=== PATIENT | male | born 1965 | race Caucasian/White ===

== ENCOUNTER 2018-02-23 18:09 | Observation (INO) | payer OTHER ==
[~2018-02-23] VITALS: Ht 368.3 cm; Wt 121.7 kg
--- NOTE | ~2018-02-23 | OP ---
PATIENT NAME: ARVIN RONDON MEDICAL RECORD: [id number] :63 LOCATION:[facility] ADMISSION DATE:02/23/18 SURGEON: KATHARINA GONZALEZ MD DATE OF OPERATION: 02/24/2018 PROCEDURES: 1. PTCA and stent of LAD. 2. PTCA and stent of left circumflex. 3. Intravascular ultrasound. 4. Left heart catheterization. 5. Selective coronary angiography. 6. Left ventriculogram. INDICATION: Unstable angina and coronary artery disease. PROCEDURE IN DETAIL: After informed consent was obtained and after a detailed explanation of the risks, benefits as well as alternative therapies, the patient elected to proceed with angiogram and angioplasty. The right femoral area was prepped and draped in normal sterile fashion. Right femoral artery was cannulated via modified Seldinger technique with placement of 7-Kazakh sheath. All catheters exchanged through this sheath. FINDINGS: Left ventriculogram was performed in a standard 30-degree SAENZ view, reveals good cardiac wall motion throughout all segments. Overall ejection fraction estimated at 50%. SELECTIVE CORONARY ANGIOGRAPHY: 1. Left main is with no significant angiographic disease. 2. Left anterior descending has greater than 80% stenosis in the mid vessel confirmed by intravascular ultrasound. 3. Left circumflex has a 90% stenosis in the mid vessel. 4. The right coronary artery is subtotally occluded in multiple areas, diffusely diseased distally. Due to the diffuse disease, this is not a vessel that will be considered for bypass surgery. PTCA AND STENT OF LAD AND CIRCUMFLEX: The LAD was addressed with a 2.75 x 26-mm Integrity and the circumflex with a 3.0 x 22 and 2.5 x 15, both Integrity stents. Result was 0% residual stenosis. OVERALL IMPRESSION: Successful PTCA and stent of the LAD and circumflex, both going from 80% to 90% initial stenosis to 0% residual. PLAN: Plan for medical management of the RCA. TRANSINT:[id number] Voice Confirmation ID: [id number] DOCUMENT ID: [id number] KATHARINA GONZALEZ MD CC: [id number] DICTATION DATE: 02/24/18 1117 [employer]: 02/24/18 1151 ADM IN [place] [id number] [place] [address]
--- NOTE | ~2018-02-23 | DS ---
PATIENT:ARVIN ANGELES :63 MEDICAL RECORD: [id number] DISCHARGE SUMMARY ADMISSION DATE: 02/23/18 DISCHARGE DATE: 02/24/18 DATE OF DISCHARGE: 02/24/2018. DIAGNOSES: 1. Unstable angina. 2. Coronary artery disease. 3. Percutaneous transluminal coronary angioplasty stent left anterior descending and circumflex this admission. HOSPITAL COURSE: Mr. Angeles presents with unstable anginal symptomatology, found to have 3-vessel coronary artery disease. The RCA was diffusely diseased, unbypassable to LAD and circumflex, underwent PTCA stent, was discharged home with the addition of aspirin and Plavix to his medical regimen. Will follow up with [facility] in 1 month. TRANSINT:[id number] Voice Confirmation ID: [id number] DOCUMENT ID: [id number] KATHARINA GONZALEZ MD CC: [id number] DICTATION DATE: 02/24/18 1114 PRACTICE COORDINATOR: 02/25/18 0020 DIS IN 02/24/18 [place] [id number] [place] [id number]
--- NOTE | ~2018-02-23 | HEMODYNAMI ---
PATIENT:AVRIN RONDON MEDICAL RECORD: [id number] : 63 [facility] ADMISSION DATE: 02/23/18 Generatedon:02/24/201815:47 Patient name: ARVIN RONDON Patient #: [id number] SSN: : 1965 Date of study: 02/24/2018 Page: Of Hemodynamic Procedure Report Patient Data Patient Demographics Procedure consent was obtained First Name: ARVIN Gender: Male Last Name: ALCON : 1965 Middle Initial: ALVINO Age: 52 year(s) Patient #: [id number] Race: Unknown Additional ID: [id number] Contact details Address: [place] [address] State: [place] City: [place] Zip code: [address] Past Medical History Allergies: No known allergies Admission Admission Data Admission Date: 02/23/2018 Admission Time: 19:03 Admit Source: Transfer acute care facility Room #: [facility] Procedure Procedure Types Cath Procedure Diagnostic Procedure LHC [facility] w/Coronaries FFR/IVUS Intra-Coronary IVUS Initial Sedation Charges Moderate Sedation up to 30 minutes PCI Procedure Coronary Stent Coronary Stent Initial x2 Coronary Stent Additional Procedure Description Procedure Date Procedure Date: 02/24/2018 Procedure Start Time: 10:22 Procedure End Time: 11:09 Procedure Staff Name Function Viet Bridges RT Manufacturing Plant Manager Gin Smith RT Monitor Medhat Gentile RN Manufacturing Plant Manager Abraham Dumont MD Performing Physician Jericho Crawford RT Scrub Marika Casey RN Nurse Procedure Data Cath Procedure Fluoroscopy Diagnostic fluoroscopy Total fluoroscopy Time: time: 17.2 min 17.2 min Diagnostic fluoroscopy Total fluoroscopy dose: dose: 2753 mGy 2753 mGy Contrast Material Contrast Material Type Amount (ml) Isovue 300 347 Entry Location Entry Primary Successful Side Size Upsize Upsize Entry Closure Succes sful Closure Location (Fr) 1 (Fr) 2 (Fr) Remarks Device Remarks Radial Right 6 Fr artery Short Femoral Right 7 Fr Exoseal artery Short Estimated blood loss: 5 ml Diagnostic catheters Device Type Used For End Catheter Placement DIAGNOSTIC Bainbridge 110cm 5 Multi-vessel Fr catheter ([id number]) Angiography Procedure Complications No complications Procedure Medications Medication Administration Route Dosage 0.9% NaCl I.V. 100 ml/hr Oxygen etCO2 Nasal cannula 2 l/min Lidocaine 2% added to field 20 Heparin Flush Bag added to field 2 bags (1000units/500ml NS) Versed I.V. 2 mg Fentanyl I.V. 50 mcg Radial Cocktail added to field 1 syringe (Verapomil 2mg/Nitro 400mcg/Heparin 1500units) Heparin Bolus I.V. 4000 units Versed I.V. 2 mg Fentanyl I.V. 50 mcg Plavix P.O. 75 mg Versed I.V. 1 mg Fentanyl I.V. 25 mcg Hemodynamics Rest Heart Rate: 73 (bpm) Pressure Samples Time Site Value (mmHg) Purpose Heart Use Rate(bpm) 10:25 LV 64/6,6 Snapshot 74 Snapshots Pre Cath Intra NCS Post Cath Vital Signs Time Heart Resp SPO2 etCO2 NIBP (mmHg) Rhythm Pain Sedation Rate (ipm) (%) (mmHg) Status Level (bpm) 10:12:17 70 21 99 35 149/91(118) NSR 0 (11) 10(A) , No pain 10:16:32 67 12 100 29.5 127/81(108) NSR 0 (11) 10(A) , No pain 10:20:46 63 18 98 31.8 122/77(92) NSR 0 (11) 9(A) , No pain 10:24:57 74 15 96 40 111/74(86) NSR 0 (11) 9(A) , No pain 10:29:06 67 13 95 12.1 112/74(92) NSR 0 (11) 9(A) , No pain 10:33:20 65 13 96 17.4 112/70(94) NSR 0 (11) 10(A) , No pain 10:37:30 66 14 96 29.5 122/73(85) NSR 0 (11) 9(A) , No pain 10:41:42 64 13 96 18.1 113/73(83) NSR 0 (11) 9(A) , No pain 10:45:56 63 12 96 13.6 112/69(91) NSR 0 (11) 9(A) , No pain 10:50:10 60 13 96 34.8 116/69(85) NSR 0 (11) 10(A) , No pain 10:54:22 60 13 97 33.3 106/62(79) NSR 0 (11) 9(A) , No pain 10:58:36 57 11 96 25 100/58(79) NSR 0 (11) 9(A) , No pain 11:02:46 58 12 97 36.3 104/63(77) NSR 0 (11) 9(A) , No pain 11:06:56 60 10 98 34.8 115/71(98) NSR 0 (11) 10(A) , No pain Medications Time Medication Route Dose Verified Delivered Reason Not es Effectiveness by by 10:08:24 0.9% NaCl I.V. 100 Abraham Marika used for ml/hr Tim Casey italian tutor 10:08:32 Oxygen etCO2 2 l/min Abraham Mariak used for Nasal Tim Casey procedure cannula RN 10:08:37 Lidocaine 2% added 20ml Abraham Abraham for local to vial Tim Dumont MD anesthetic field 10:08:41 Heparin Flush added 2 bags Abrahambella Rosario used for Bag to Tim Dumont MD procedure (1000units/500ml field NS) 10:19:42 Versed I.V. 2 mg Abraham Marika for sedation Tim Casey RN 10:19:56 Fentanyl I.V. 50 mcg Abraham Marika for sedation Tim Casey RN 10:22:17 Radial Cocktail added 1 Abraham Abraham used for (Verapomil to syringe Tim Dumont MD procedure 2mg/Nitro field 400mcg/Hepari 10:33:17 Heparin Bolus I.V. 4000 Abraham Marika for dianelys ified units Tmi Casey anticoagulation with Dr. MAR Dumont 10:33:36 Versed I.V. 2 mg Abraham Marika for sedation Tim Casey RN 10:33:42 Fentanyl I.V. 50 mcg Abraham Marika for sedation Tim Casey RN 10:37:20 Plavix P.O. 75 mg Abraham Marika for Tim Casey antiplatelet RN therapy 10:52:14 Versed I.V. 1 mg Abraham Hairston for sedation Tim Casey RN 10:52:18 Fentanyl I.V. 25 mcg Abraham Hairston for sedation Tim Casey RN Procedure Log Time Note 9:52:40 Medhat Gentile RN sent for patient. Start room use. 10:07:07 Admit Source: Transfer acute care facility 10:07:37 Diagnostic Cath status Elective 10:07:41 Time tracking: Regular hours (M-F 7:00 - 5:00) 10:07:46 Plan of Care:Hemodynamics will remain stable., Cardiac rhythm will remain stable., Comfort level will be maintained., Respiratory function will remain adequate., Patient/ family verbilizes understanding of procedure., Procedure tolerated without complication., Recovers from procedure without complications.. 10:07:54 Patient received from PCU to CCL 1 Alert and oriented. Tansferred to table in Supine position. 10:07:55 Correct patient and procedure confirmed by team. 10:07:55 Warm blankets applied, and anahy hugger turned on for patient comfort. 10:07:57 Signed procedure consent form obtained from patient. 10:07:58 ECG and BP/O2 sat monitors applied to patient. 10:08:24 0.9% NaCl 100 ml/hr I.V. was administered by Marika Casey RN; used for procedure; 10:08:32 Oxygen 2 l/min etCO2 Nasal cannula was administered by Marika Casey RN; used for procedure; 10:08:37 Lidocaine 2% 20ml vial added to field was administered by Abraham Dumont MD; for local anesthetic; 10:08:41 Heparin Flush Bag (1000units/500ml NS) 2 bags added to field was administered by Abrahma Dumont MD; used for procedure; 10:11:04 Vital chart was started 10:11:08 Baseline sample Acquired. 10:11:20 Rhythm: sinus rhythm 10:12:21 H&P Date Dictated: 02/23/2018 ER History on chart.. 10:12:27 Pre-procedure instructions explained to patient. 10:12:28 Pre-op teaching completed and patient verbalized understanding. 10:12:31 Family unavailable. 10:12:35 Patient NPO since Midnight. 10:12:53 Patient allergic to No known allergies 10:13:00 Is the patient allergic to Iodine/contrast media? No. 10:13:07 Is patient on blood thinner?Yes 10:13:13 ACC The patient was administered the following blood thiners within the last 24 hours: ACCPlavix 10:13:18 Patient diabetic? No. 10:13:29 ----Pre-sedation anethsthesia assessment.---- 10:13:34 Previous problem with sedation/anesthesia? No ? 10:13:37 Snore? Yes 10:13:40 Sleep apnea? No 10:13:42 Deviated septum? No 10:13:44 Opens mouth fully? Yes 10:13:46 Sticks out tongue? Yes 10:13:50 Airway obstruction? No ? 10:13:55 Dentures? No ? 10:14:11 Patient pain scale 0/10 ?. 10:14:21 Modified Jose's test Radial > 7 seconds. 10:14:43 IV patent on arrival in right forearm with 0.9% NaCl at 100ml/hr. 10:18:29 IV patent on arrival in right hand with 0.9% NaCl at KVO. 10:18:33 Lab results completed and on chart. 10:18:38 Right Radial & Right Groin area was prepped with chlora-prep and draped in sterile fashion 10:18:39 Sharps counted by scrub and verified by R.N. 10:18:39 Alarms reviewed by R. N. 10:18:42 Physician arrived 10:18:43 --------ALL STOP TIME OUT------ 10:18:45 Final Timeout: patient, procedure, and site verified with staff and physician. All members of the team are in agreement. 10:18:46 Right Radial & Right Groin site verified by team. 10:18:50 Physical assessment completed. ASA score P 2 - A patient with mild systemic disease as per Abraham Dumont MD. 10:18:54 Sedation plan: IV Moderate Sedation Medication:Versed, Fentanyl 10:19:42 Versed 2 mg I.V. was administered by Marika Casey RN; for sedation; 10:19:56 Fentanyl 50 mcg I.V. was administered by Marika Casey RN; for sedation; 10:20:41 Use device set Radial Dx or PCI 10:20:43 Medline Cath Pack ([id number]) opened to sterile field. 10:20:43 ACIST Syringe (60998) opened to sterile field. 10:20:44 ACIST Hand Control (27815) opened to sterile field. 10:20:44 DIAGNOSTIC WIRE .035 260cm J wire (137356) opened to sterile field. 10:20:44 Bag Decanter (2001S) opened to sterile field. 10:20:45 Tegaderm 4 x 4 (1626W) opened to sterile field. 10:20:45 ACIST Manifold (76875) opened to sterile field. 10:20:46 MBrace Wrist Support ([id number]) opened to sterile field. 10:20:47 SHEATH 6FR Slender (75-5775) opened to sterile field. 10:22:17 Radial Cocktail (Verapomil 2mg/Nitro 400mcg/Heparin 1500units) 1 syringe added to field was administered by Abraahm Dumont MD; used for procedure; 10:22:38 Full Disclosure recording started 10:22:38 Procedure started. 10:22:42 Local anesthetic to right radial artery with Lidocaine 2% by Abraham Dumont MD.INITIAL ACCESS ONLY 10:22:50 A 6 Fr Short sheath was inserted into the Right Radial artery 10:23:30 A DIAGNOSTIC Bainbridge 110cm 5 Fr catheter (153632) was advanced over the wire and used for Multi-vessel Angiography. 10:23:33 Zero performed for pressure channel P1 10:25:03 LV gram done using SAENZ 10:25:06 Injector settings: Ml/sec: 5, Volume: 15, 10:25:14 EF : 55 % 10:25:35 RCA angiography performed. 10:25:42 Injector settings: Ml/sec: 3, Volume: 6, 10:26:13 Catheter removed. 10:26:48 GUIDE 6FR EBU 3.5 catheter (MO2RLE04) opened to sterile field. 10:27:04 6 Fr ebu 3.5 guide catheter was inserted over the wire 10:27:46 LCA angiography performed. 10:27:49 Injector settings: Ml/sec: 3, Volume: 6, 10:29:16 Catheter removed. 10:29:17 Proceeding to intervention. 10:29:55 FIELDER XT J 300cm guide wire ([id number]) opened to sterile field. 10:29:56 INFLATOR Merit Eitanpak (QR6091) opened to sterile field. 10:31:09 GUIDE 6FR AR 2.0 SH catheter ([id number]) opened to sterile field. 10:31:22 6 Fr ar 2 sh guide catheter was inserted over the wire 10:32:23 Guide Catheter removed. unable to cannulate vessel. 10:32:32 GUIDE 6FR HS II SH catheter ([id number]) opened to sterile field. 10:32:42 6 Fr hs 2 sh guide catheter was inserted over the wire 10:33:17 Heparin Bolus 4000 units I.V. was administered by Marika Casey RN; for anticoagulation; verified with Dr. Dumont 10:33:36 Versed 2 mg I.V. was administered by Marika Casey RN; for sedation; 10:33:42 Fentanyl 50 mcg I.V. was administered by Marika Casey RN; for sedation; 10:34:32 Guide Catheter removed. unable to cannulate vessel. 10:35:07 GUIDE 6FR EBU 4.0 guide catheter ([id number]) opened to sterile field. 10:35:57 6 Fr ebu 4 guide catheter was inserted over the wire 10:37:20 Plavix 75 mg P.O. was administered by Marika Casey RN; for antiplatelet therapy; 10:38:09 fielder wire advanced. 10:40:14 Place stent Inflation Number: 1 A INTEGRITY RX 3.0 x 22 stent ([id number]) was prepped and advanced across the Mid CX. The stent was deployed at 13 ALEX for 0:10 (min:sec). 10:41:03 Stent catheter was removed intact over wire. 10:43:08 Place stent Inflation Number: 1 A INTEGRITY RX 2.5 x 14 stent ([id number]) was prepped and advanced across the 1st Ob Mei. The stent was deployed at 15 ALEX for 0:10 (min:sec). 10:43:13 Stent catheter was removed intact over wire. 10:43:16 Wire removed. 10:44:07 CHOICE PT Extra Support 182cm wire ([id number]) opened to sterile field. 10:44:17 choice pt wire advanced. 10:47:15 Wire removed. 10:47:16 Guide catheter removed. 10:47:31 SHEATH 7FR [place] (FEM888) opened to sterile field. 10:47:42 Local anesthetic to right femoral artery with Lidocaine 2% by Abraham Dumont MD.ADDITIONAL ACCESS 10:47:51 A 7 Fr Short sheath was inserted into the Right Femoral artery 10:49:32 GUIDE 7FR EBU 3.5 catheter (FZ2DCI79) opened to sterile field. 10:50:31 7 Fr ebu 3.5 guide catheter was inserted over the wire 10:50:38 Guide Catheter removed. unable to cannulate vessel. 10:51:08 GUIDE 7FR EBU 4.0 catheter (IJ6YWO09) opened to sterile field. 10:51:18 7 Fr ebu 4 guide catheter was inserted over the wire 10:51:45 fielder wire advanced. 10:52:14 Versed 1 mg I.V. was administered by Marika Casey RN; for sedation; 10:52:18 Fentanyl 25 mcg I.V. was administered by Marika Casey RN; for sedation; 10:54:40 Wire advanced across lesion. 10:56:26 Inflate balloon Inflation number: 2 A EUPHORA 1.5 x 20 Balloon ([id number]) was prepped and advanced across the Mid CX, then inflated to 21 ALEX for 0:10 (min:sec). 10:56:57 Balloon removed over the wire. 10:58:08 Inflate balloon Inflation number: 3 A EMERGE OTW 2.0 x 15 balloon ([id number]) was prepped and advanced across the Mid CX, then inflated to 13 ALEX for 0:10 (min:sec). 10:59:00 Wire redirected to lad. 11:00:58 [place] IVUS Catheter (63262C) opened to sterile field. 11:01:10 IVUS catheter advanced over wire. 11:02:42 IVUS pass to LAD lesion performed. 11:02:43 IVUS catheter removed over wire. 11:04:54 Place stent Inflation Number: 1 A INTEGRITY RX 2.75 x 26 stent ([id number]) was prepped and advanced across the Mid LAD. The stent was deployed at 17 ALEX for 0:10 (min:sec). 11:05:58 Stent catheter was removed intact over wire. 11:05:59 Wire removed. 11:06:00 Guide catheter removed. 11:06:20 EXOSEAL 7Fr (EX700) opened to sterile field. 11:06:32 TR BAND Large ([id number]) opened to sterile field. 11:07:14 Sheath removed intact; hemostasis achieved with Exoseal to the Right Femoral artery. 11:07:16 Procedure ended.(Physican Out) 11:07:27 Fluoroscopy time 17.20 minutes. 11:07:32 Fluoroscopy dose: 2753 mGy 11:07:32 Flurop Dose total: 2753 11:07:53 Contrast amount:Isovue 300 347ml. 11:07:55 Sharps counted by scrub and verified by R.N. 11:07:57 TR band inflated with 10cc of air. 11:07:59 Insertion/operative site no bleeding no hematoma. 11:08:02 Post-op/insertion site Right Femoral artery dressed using a 4 x 4 and Tegaderm. 11:08:06 Post right radial artery:stable 11:08:08 Post Procedure Pulses reassessed and unchanged 11:08:14 Post procedure rhythm: unchanged. 11:08:16 Estimated blood loss: 5 ml 11:08:18 Patient needs reinforcement of post procedure teaching. 11:08:18 Post procedure instruction explained to patient.Patient verbalizes understanding. 11:08:59 Procedure type changed to Cath procedure, Diagnostic procedure, LHC, LHC w/Coronaries, FFR/IVUS, Intra-Coronary IVUS Initial, Sedation Charges, Moderate Sedation up to 30 minutes, PCI procedure, Coronary Stent, Coronary Stent Initial x2, Coronary Stent Additional 11:09:01 Procedure and supply charges have been captured, reviewed, submitted and are correct. 11:09:07 Procedure Complication : No complications 11:09:09 See physician's report for complete and final results. 11:09:09 Vital chart was stopped 11:09:12 Report given to Pre/Post Procedure Room. 11:09:15 Patient transfered to Pre/Post Procedure Room with Stretcher. 11::17 Full Disclosure recording stopped 11::17 Procedure ended. 11:09:23 ACC-PCI Only Patient was given prescriptions, or instructed by Abraham Dumont MD to start/continue the following medications upon discharge: Plavix 11:09:25 End room use (Document Last) Intervention Summary Intervention Notes Time ActionType Lesion and Equipment Action# Pressure Duration Attributes Used 10:40:14 Place stent Mid CX INTEGRITY RX 1 13 00:10 3.0 x 22 stent ([id number]) 10:43:08 Place stent 1st Ob Mei INTEGRITY RX 1 15 00:10 2.5 x 14 stent ([id number]) 10:56:26 Inflate Mid CX EUPHORA 1.5 2 21 00:10 balloon x 20 Balloon ([id number]) 10:58:08 Inflate Mid CX EMERGE OTW 3 13 00:10 balloon 2.0 x 15 balloon ([id number]) 11:04:54 Place stent Mid LAD INTEGRITY RX 1 17 00:10 2.75 x 26 stent ([id number]) Device Usage Item Name Manufacture Quantity Catalog Number Hospital Part Current [facility] Lot# / Charge Number Stock Stock Serial# Code ACIST Acist 1 88211 362043 942140 697301 20 Syringe Medical (42093) Systems Inc Medline Cath Medline 1 [id number] 267757 18053 424120 5 Pack ([id number]) Bag Decanter Microtek 1 2001S 124374 71579 567359 5 () Medical Inc. DIAGNOSTIC St Gt 1 500746 660839 629947 319841 30 WIRE .035 260cm J wire (682000) ACIST Hand Acist 1 84502 911226 674880 833892 5 Control Medical (08748) Systems Inc ACIST Acist 1 47115 955570 933015 829402 5 Manifold Medical (13743) Systems Inc Tegaderm 4 x 3M 1 1626W 695992 333406 578395 5 4 (1626W) MBrace Wrist Advanced 1 140-0250-00 922550 25686 771479 5 Support Vascular (601857218) Dynamics SHEATH 6FR Terumo 1 [id number] 525626 716751 285859 40 Slender (80-1060) DIAGNOSTIC Terumo 1 40-3903 092909 042040 002068 5 Bainbridge 110cm 5 Fr catheter (473190) GUIDE 6FR Medtronic 1 [id number] 681025 25147 552179 3 EBU 3.5 catheter (ZW7QQM04) FIELDER XT J [place] 1 [id number] 098053 839881 874164 5 300cm guide Vascular wire ([id number]) INFLATOR [facility] 1 BV5692 329711 421637 553146 15 [facility] Medical BasixCompak (ML8258) GUIDE 6FR AR Medtronic 1 [id number] 163056 50644 280829 1 2.0 SH catheter (WD5OQ3OL) GUIDE 6FR HS Medtronic 1 [id number] 158315 60800 392595 1 II SH catheter ([id number]) GUIDE 6FR Medtronic 1 VG9SAF45 293072 23244 016516 1 EBU 4.0 guide catheter (LK2CLU02) CHOICE PT [place] 1 [id number] 162245 909410 876300 5 Extra Scientific Support 182cm wire ([id number]) SHEATH 7FR Terumo 1 EXG201 132493 578964 465579 5 [place] (UUB784) GUIDE 7FR Medtronic 1 PJ0HYS08 602613 181098 192949 0 EBU 3.5 catheter (FE5XKV84) GUIDE 7FR Medtronic 1 PE6VEU24 566911 397880 317233 0 EBU 4.0 catheter (CJ6JWG41) EUPHORA 1.5 Medtronic 1 [id number] 173497 774660 008391 5 x 20 Balloon ([id number]) EMERGE OTW [place] 1 [id number] 724948 210111 957685 5 2.0 x 15 Scientific balloon ([id number]) [place] 1 04284D 256378 273089 437977 8 [place] IVUS Catheter (88847Y) EXOSEAL 7Fr Cardinal 1 EX700 768727 375878 061303 5 (EX700) Health TR BAND Terumo 1 CVV90-STC 510109 441132 153664 40 Large (OSS[facility]) INTEGRITY RX Medtronic 1 [id number] 830072 063206 997734 5 [id number] 3.0 x 22 stent ([id number]) INTEGRITY RX Medtronic 1 [id number] 652951 121561 217137 5 [id number] 2.5 x 14 stent ([id number]) INTEGRITY RX Medtronic 1 [id number] 825131 090806 824933 5 [id number] 2.75 x 26 stent ([id number]) Signature Audit [place] Stage Time Signature Unsigned Intra-Procedure 02/24/2018 Gin Smith RT(R) 11:13:25 AM RT(R) 02/24/2018 3:39:19 PM Intra-Procedure 02/24/2018 Viet Bridges 3:47:06 PM RT(R) Signatures Monitor : Gin Smith RT Signature : Date : Time : [facility] [address] [place] [address]
[2018-02-23] MEDS ORDERED: OMEPRAZOLE40 MG (18:17)
[2018-02-23] MEDS ORDERED: CARAFATE1 G (18:17)
[2018-02-23] MEDS ORDERED: COZAAR50 MG (18:17)
[2018-02-23] MEDS ORDERED: ZOCOR20 MG (18:17)
[2018-02-23] MEDS ORDERED: BAYER CHEWABLE81 MG (18:18)
[2018-02-24] VITALS: BP 115/74
[2018-02-24 00:19] VITALS: BP 128/70
[2018-02-24 05:03] VITALS: BP 118/58
[2018-02-24 06:00] LABS: BASOPHILS 0.2 % (0-2); EOSINOPHILS 1.3 % (0-7); HEMATOCRIT 39.5 % (42.0-54.0); HEMOGLOBIN 14.1 g/dL (13.5-17.5); IMMATURE GRANULOCYTES 0.2 % (0-5); LYMPHOCYTES 32.9 % (15-50); MCHC 35.7 g/dL (31.0-37.0); MCV 89.8 fL (80.0-100.0); MONOCYTES 12.7 % (2-11); NEUTROPHILS 52.7 % (40-80); PLATELET COUNT 168 10x3/uL (130-400); RDW 13.3 % (11.5-14.5); WBC 5.5 10x3/uL (4.8-10.8)
[2018-02-24 07:02] LABS: CALC OSMOLALITY 274 mosm/kg (275-300); CALCIUM 8.6 mg/dL (8.5-10.1); CARBON DIOXIDE 27.4 mmol/L (21.0-32.0); CHLORIDE - SERUM 101 mmol/L (98-107); CKMB 1.3 U/L (0.0-3.6); CREATINE KINASE 106 UL (21-232); CREATININE - SERUM 0.9 mg/dL (0.6-1.3); GLUCOSE 107 mg/dL (74-106); POTASSIUM - SERUM 4.2 mmol/L (3.5-5.1); SODIUM 138 mmol/L (136-145); TROPONIN-I < 0.017 ng/mL (0.000-0.060); UREA NITROGEN 10 mg/dL (7-18); eGFR NON AFRICAN AMERICAN > 90 mL/min (90-120)
[2018-02-24 08:48] VITALS: Ht 368.3 cm; Wt 121.7 kg
[2018-02-24] MEDS ORDERED: PLAVIX75 MG PO (11:30)
== END 2018-02-24 15:15 | disposition home or self-care (01) ==
LOC: D.ER 18:09 → D.EDHOLD 19:03 → D.CLR 19:03 → D.M2 19:03 → OBSVTIME 22:00 → D.CLR 02-24 11:24
PROVIDERS: Family Medicine
DX: I25.110 Atherosclerotic heart disease of native coronary artery with unstable angina pectoris (principal); I10 Essential (primary) hypertension; E78.5 Hyperlipidemia, unspecified

== ENCOUNTER 2018-02-27 07:13 | Outpatient (CLI) | payer OTHER ==
[2018-02-27 08:29] LABS: CALC OSMOLALITY 273 mosm/kg (275-300); CALCIUM 9.1 mg/dL (8.5-10.1); CHLORIDE - SERUM 101 mmol/L (98-107); CREATININE - SERUM 0.8 mg/dL (0.6-1.3); GLUCOSE 112 mg/dL (74-106); POTASSIUM - SERUM 4.1 mmol/L (3.5-5.1); SODIUM 137 mmol/L (136-145); UREA NITROGEN 10 mg/dL (7-18); eGFR NON AFRICAN AMERICAN > 90 mL/min (90-120)
[2018-02-27 08:51] LABS: BASOPHILS 0.2 % (0-2); HEMATOCRIT 42.2 % (42.0-54.0); HEMOGLOBIN 15.3 g/dL (13.5-17.5); IMMATURE GRANULOCYTES 0.2 % (0-5); MCH 32.5 pg (26.0-34.0); MCHC 36.3 g/dL (31.0-37.0); MCV 89.6 fL (80.0-100.0); MEAN PLATELET VOLUME 9.3 fL (7.4-10.4); MONOCYTES 11.7 % (2-11); NEUTROPHILS 61.9 % (40-80); PLATELET COUNT 177 10x3/uL (130-400); RBC 4.71 10x6/uL (4.20-6.10); WBC 5.9 10x3/uL (4.8-10.8)
== END 2018-02-27 16:00 ==
LOC: D.CATH 07:13
PROVIDERS: Internal Medicine Interventional Cardiology
DX: I25.119 Atherosclerotic heart disease of native coronary artery with unspecified angina pectoris (principal); E78.5 Hyperlipidemia, unspecified; Z95.5 Presence of coronary angioplasty implant and graft; Z01.812 Encounter for preprocedural laboratory examination

== ENCOUNTER 2018-02-28 10:26 | Emergency (ER) | payer OTHER ==
[2018-02-28 10:55] LABS: BASOPHILS 0.1 % (0-2); EOSINOPHILS 1.1 % (0-7); HEMATOCRIT 37.4 % (42.0-54.0); HEMOGLOBIN 13.5 g/dL (13.5-17.5); IMMATURE GRANULOCYTES 0.1 % (0-5); LYMPHOCYTES 23.9 % (15-50); MCH 32.2 pg (26.0-34.0); MCHC 36.1 g/dL (31.0-37.0); MCV 89.3 fL (80.0-100.0); MEAN PLATELET VOLUME 8.7 fL (7.4-10.4); MONOCYTES 14.8 % (2-11); PLATELET COUNT 147 10x3/uL (130-400); RBC 4.19 10x6/uL (4.20-6.10); RDW 13.1 % (11.5-14.5); WBC 7.3 10x3/uL (4.8-10.8)
[2018-02-28 11:08] LABS: ALBUMIN 3.6 g/dL (3.4-5.0); ALKALINE PHOSPHATASE 73 U/L (46-116); ALT (SGPT) 44 U/L (10-68); CALC OSMOLALITY 274 mosm/kg (275-300); CALCIUM 8.8 mg/dL (8.5-10.1); CARBON DIOXIDE 26.4 mmol/L (21.0-32.0); CHLORIDE - SERUM 101 mmol/L (98-107); CREATININE - SERUM 0.7 mg/dL (0.6-1.3); GLUCOSE 106 mg/dL (74-106); POTASSIUM - SERUM 4.3 mmol/L (3.5-5.1); PROTEIN - SERUM 7.5 g/dL (6.4-8.2); SODIUM 138 mmol/L (136-145); UREA NITROGEN 10 mg/dL (7-18); eGFR NON AFRICAN AMERICAN > 90 mL/min (90-120)
[2018-02-28 11:24] LABS: CREATINE KINASE 85 UL (21-232)
[2018-02-28 11:26] LABS: TROPONIN-I 0.087 ng/mL (0.000-0.060)
== END 2018-02-28 12:05 | disposition home or self-care (01) ==
LOC: D.ER 10:26
PROVIDERS: Family Medicine
DX: I10 Essential (primary) hypertension (principal)

== ENCOUNTER → 2018-05-08 08:02 | Outpatient (CLI) | payer OTHER ==
[~2018-05-08 08:02] MED LIST: BAYER CHEWABLE81 MG PO; CARAFATE1 G; COZAAR50 MG PO; HYDRALAZINE HCL50 MG PO; ISOSORBIDE DINI10 MG PO; METOPROLOL TART50 MG PO; NITROQUICK0.4 MG SL; NORVASC5 MG PO; OMEPRAZOLE40 MG; PLAVIX75 MG PO; ZOCOR20 MG
--- NOTE | 2018-05-11 11:46 | ST ---
PATIENT:ARVIN RONDON MEDICAL RECORD: [id number] SEX: M [facility] ORDER #: ADMISSION DATE: 05/08/18 AGE OF PATIENT: 52 REFERRING PHYSICIAN: INTERPRETING PHYSICIAN: KATHARINA GONZALEZ MD DATE OF SERVICE: 05/08/2018 PROCEDURE: Nuclear stress test. INDICATIONS: Angina, coronary artery disease, hypertension, and hyperlipidemia. He was exercised on standard Lexiscan protocol with 30 mCi of sestamibi injected at peak stress, 10 mCi used previously for rest images. FINDINGS: Gated SPECT reveals preserved ejection fraction of greater than 70% with good wall motion and thickening and brightening throughout all segments. SPECT imaging: Cardiolite was used as a myocardial perfusion agent. There is definite reversible changes inferiorly. This includes the basal, mid, apical, inferior segments. The degree of reversibility is moderate. The amount of myocardium involved is moderate. OVERALL IMPRESSION: 1. This is an abnormal nuclear stress test, reversibility inferiorly. 2. Gated SPECT reveals preserved ejection fraction of greater than 70%. In this patient with ongoing symptomatology, the current scan does suggest the presence of hemodynamically significant coronary artery disease. We will proceed with coronary angiography as a followup study. TRANSINT:[id number] Voice Confirmation ID: [id number] DOCUMENT ID: [id number] KATHARINA GONZALEZ MD at 1146 CC: [id number] DICTATION DATE: 05/08/18 1344 ORDAINED MINISTER: 05/09/[address] [facility] CLI 05/08/18 [place] [id number] [place] [address]
== END | disposition home or self-care (01) ==
LOC: D.HCCARDIO 08:02
DX: R07.9 Chest pain, unspecified (principal)

== ENCOUNTER 2018-05-15 06:33 | Outpatient (CLI) | payer OTHER ==
[~2018-05-15] VITALS: Ht 180.3 cm; Wt 129.5 kg
--- NOTE | ~2018-05-15 | HEMODYNAMI ---
PATIENT:ARVIN RONDON MEDICAL RECORD: [id number] : 63 LOCATION:D.CAT ADMISSION DATE: 05/15/18 Generatedon:05/15/201810:15 Patient name: ARVIN RONDON Patient #: [id number] SSN: : 1965 Date of study: 05/15/2018 Page: Of Hemodynamic Procedure Report Patient Data Patient Demographics Procedure consent was obtained First Name: ARVIN Gender: Male Last Name: ALCON : 1965 [facility] Initial: ALVINO Age: 52 year(s) Patient #: [id number] Race: Unknown Additional ID: [id number] Contact details Address: [place] [address] State: [place] City: [place] Zip code: [address] Past Medical History Allergies: No known allergies Admission Admission Data Admission Date: 05/15/2018 Admission Time: 6:33 Procedure Procedure Types Cath Procedure Diagnostic Procedure LHC LHC w/Coronaries FFR/IVUS Intra-Coronary IVUS Initial Sedation Charges Moderate Sedation up to 15 minutes PCI Procedure Coronary Stent Coronary Stent Initial x2 Procedure Description Procedure Date Procedure Date: 05/15/2018 Procedure Start Time: 9:51 Procedure End Time: 10:14 Procedure Staff Name Function Abraham Dumont MD Performing Physician Jackie Uriarte RT Monitor Medhat Gentile RN Bow Maker Custom Kulwant Magallon RN Nurse Gin Smith RT Scrub Rupa Nieto RT Scrub Procedure Data Cath Procedure Fluoroscopy Diagnostic fluoroscopy Total fluoroscopy Time: 5.3 time: 5.3 min min Diagnostic fluoroscopy Total fluoroscopy dose: dose: 1368 mGy 1368 mGy Contrast Material Contrast Material Type Amount (ml) Isovue 300 115 Entry Location Entry Primary Successful Side Size Upsize Upsize Entry Closure Succes sful Closure Location (Fr) 1 (Fr) 2 (Fr) Remarks Device Remarks Femoral Right 5 Fr 7 Fr Exoseal artery Short Estimated blood loss: 10 ml Diagnostic catheters Device Type Used For End Catheter Placement MULTIPACK Pigtail 5 Fr LV Angiography catheter MULTIPACK JL 4.0 5Fr Left Coronary catheter Angiography MULTIPACK 3DRC 5Fr Right Coronary catheter Angiography Procedure Complications No complications Procedure Medications Medication Administration Route Dosage 0.9% NaCl I.V. 100 ml/hr Oxygen etCO2 Nasal cannula 2 l/min Heparin Flush Bag added to field 2 bags (1000units/500ml NS) Lidocaine 2% added to field 20 Versed I.V. 2 mg Fentanyl I.V. 100 mcg Heparin Bolus I.V. 4000 units Versed I.V. 1 mg Hemodynamics Rest Heart Rate: 60 (bpm) Snapshots Pre Cath Intra NCS Post Cath Vital Signs Time Heart Resp SPO2 etCO2 NIBP (mmHg) Rhythm Pain Sedation Rate (ipm) (%) (mmHg) Status Level (bpm) 9:43:14 63 17 100 31.6 136/91(103) NSR 0 (11) 10(A) , No pain 9:47:32 60 12 99 30.8 116/73(91) NSR 0 (11) 10(A) , No pain 9:51:44 57 11 99 12 112/75(85) NSR 0 (11) 10(A) , No pain 9:55:56 53 15 98 9 116/69(90) NSR 0 (11) 9(A) , No pain 10:00:06 59 16 97 18 119/76(94) NSR 0 (11) 9(A) , No pain 10:04:26 58 10 99 9.7 117/52(80) NSR 0 (11) 10(A) , No pain 10:08:38 67 15 100 38.4 130/82(104) NSR 0 (11) 10(A) , No pain 10:12:52 70 11 100 30.1 131/84(100) NSR 0 (11) 10(A) , No pain Medications Time Medication Route Dose Verified Delivered Reason Notes Effectiveness by by 9:43:30 0.9% NaCl I.V. 100 Kulwant Kulwant Per physician ml/hr Sherita Magallon RN RN 9:43:41 Oxygen etCO2 2 Kulwant Kulwant for low 02 sats Nasal l/min Sherita Magallon cannula RN RN 9:43:55 Heparin Flush added 2 Kulwant Kulwant used for Bag to bags Sherita Magallon procedure (1000units/500ml field RN RN NS) 9:44:09 Lidocaine 2% added 20ml Kulwant Kulwant for local to vial Sherita Magallon anesthetic field RN RN 9:48:29 Versed I.V. 2 mg Kulwant Kulwant for sedation Sherita Magallon RN RN 9:48:38 Fentanyl I.V. 100 Kulwant Kulwant for sedation mcg Sherita Magallon RN RN 10:01:06 Heparin Bolus I.V. 4000 Kulwant Kulwant for units Sherita Magallon anticoagulation RN RN 10:09:10 Versed I.V. 1 mg Kulwant Kulwant for sedation Sherita Magallon RN network lead Log Time Note 9:31:51 Medhat Gentile RN sent for patient. Start room use. 9:31:52 Time tracking: Regular hours (M-F 7:00 - 5:00) 9:31:56 Plan of Care:Hemodynamics will remain stable., Cardiac rhythm will remain stable., Comfort level will be maintained., Respiratory function will remain adequate., Patient/ family verbilizes understanding of procedure., Procedure tolerated without complication., Recovers from procedure without complications.. 9:35:26 Patient received from Pre/Post Procedure Room to CCL 2 Alert and oriented. Tansferred to table in Supine position. 9:35:27 Warm blankets applied, and anahy hugger turned on for patient comfort. 9:35:27 Correct patient and procedure confirmed by team. 9:35:28 Signed procedure consent form obtained from patient. 9:35:29 ECG and BP/O2 sat monitors applied to patient. 9:35:30 Full Disclosure recording started 9:42:11 Vital chart was started 9:42:15 Rhythm: sinus rhythm 9:42:52 H&P Date Dictated: 04/28/2018 Within 30 days and on chart., H&P Addendum completed by physician on day of procedure. (MUST COMPLETE FOR ALL OUTPATIENTS). 9:42:53 Pre-procedure instructions explained to patient. 9:42:53 Pre-op teaching completed and patient verbalized understanding. 9:43:00 Family unavailable. 9:43:02 Patient NPO since Midnight. 9:43:11 Patient allergic to No known allergies 9:43:13 Is the patient allergic to Iodine/contrast media? No. 9:43:15 Is patient on blood thinner?Yes 9:43:18 Patient diabetic? No. 9:43:24 Previous problem with sedation/anesthesia? No ? 9:43:25 Snore? Yes 9:43:26 Sleep apnea? Yes 9:43:27 Deviated septum? No 9:43:28 Opens mouth fully? Yes 9:43:29 Sticks out tongue? Yes 9:43:30 0.9% NaCl 100 ml/hr I.V. was administered by Kulwant Magallon RN; Per physician; 9:43:31 Airway obstruction? No ? 9:43:33 Dentures? No ? 9:43:41 Oxygen 2 l/min etCO2 Nasal cannula was administered by Kulwant Magallon RN; for low 02 sats; 9:43:52 ACC The patient was administered the following blood thiners within the last 24 hours: ACCPlavix 9:43:55 Heparin Flush Bag (1000units/500ml NS) 2 bags added to field was administered by Kulwant Magallon RN; used for procedure; 9:43:58 Pre procedure: right dorsailis pedis pulse 2+ Normal; easily identifiable; not easily obliterated 9:44:09 Lidocaine 2% 20ml vial added to field was administered by Kulwant Magallon RN; for local anesthetic; 9:44:33 Patient pain scale 0/10 ?. 9:44:41 IV patent on arrival in right antecubital with 0.9% NaCl at [facility]. 9:44:54 Lab results completed and on chart. 9:44:57 Right groin area was prepped with chlora-prep and draped in sterile fashion 9:44:58 Alarms reviewed by R. N. 9:44:58 Sharps counted by scrub and verified by R.N. 9:45:02 Use device set Femoral Dx 9:45:03 ACIST Syringe (11827) opened to sterile field. 9:45:03 Bag Decanter (2002) opened to sterile field. 9:45:04 Medline Cath Pack ([id number]) opened to sterile field. 9:45:04 DIAGNOSTIC WIRE .035 260cm J wire (966553) opened to sterile field. 9:45:05 ACIST Hand Control (44085) opened to sterile field. 9:45:06 ACIST Manifold (55953) opened to sterile field. 9:45:06 DIAGNOSTIC Multipack 5Fr catheter set (WI0422) opened to sterile field. 9:45:07 Tegaderm 4 x 4 (1626W) opened to sterile field. 9:45:08 SHEATH 5FR [place] (PEA691) opened to sterile field. 9:45:40 Baseline sample Acquired. 9:47:29 Final Timeout: patient, procedure, and site verified with staff and physician. All members of the team are in agreement. 9:47:31 Right groin site verified by team. 9:47:34 Fire Safety Assessment: A--An alcohol-based skin anteseptic being used preoperatively., C--Open oxygen or nitrous oxide is being used., D--An ESU, laser, or fiber-optic light is being used. 9:47:38 Physical assessment completed. ASA score P 2 - A patient with mild systemic disease as per Abraham Dumont MD. 9:47:44 Sedation plan: IV Moderate Sedation Medication:Versed, Fentanyl 9:48:29 Versed 2 mg I.V. was administered by Kulwant Magallon RN; for sedation; 9:48:38 Fentanyl 100 mcg I.V. was administered by Kulwant Magallon RN; for sedation; 9:51:44 Zero performed for pressure channel P1 9:51:50 Procedure started. 9:51:53 Local anesthetic to right femoral artery with Lidocaine 2% by Abraham Dumont MD.INITIAL ACCESS ONLY 9:52:07 A 5 Fr sheath was inserted into the Right Femoral artery 9:54:09 A MULTIPACK Pigtail 5 Fr catheter was advanced over the wire and used for LV Angiography. 9:54:15 LV gram done using SAENZ 9:54:19 EF : 50 % 9:54:24 Injector settings: Ml/sec: 7, Volume: 15, 9:54:27 Catheter removed. 9:54:33 A MULTIPACK JL 4.0 5Fr catheter was advanced over the wire and used for Left Coronary Angiography. 9:55:49 Catheter removed. 9:55:59 A MULTIPACK 3DRC 5Fr catheter was advanced over the wire and used for Right Coronary Angiography. 9:56:15 Use device set TAU PCI 9:56:21 SHEATH 7FR [place] (PCH848) opened to sterile field. 9:56:22 INFLATOR Merit BasixCompak (ME9847) opened to sterile field. 9:56:25 CHOICE PT Extra Support 182cm wire ([id number]) opened to sterile field. 9:56:56 Catheter removed. 9:57:05 Sheath upsized to a 7 Fr Short. 9:57:47 [place] IVUS Catheter (45537X) opened to sterile field. 9:58:24 GUIDE 7FR EBU 3.5 catheter ([id number]) opened to sterile field. 10:00:45 7 Fr EBU 3.5 guide catheter was inserted over the wire 10:00:49 Guide Catheter removed. unable to cannulate vessel. 10:00:56 7 Fr EBU 4.0 SH guide catheter was inserted over the wire 10:01:06 Heparin Bolus 4000 units I.V. was administered by Kulwant Magallon RN; for anticoagulation; 10:01:07 GUIDE 7FR EBU 4.0 SH catheter ([id number]) opened to sterile field. 10:02:12 CHOICE PT ES wire advanced. 10:02:59 IVUS catheter advanced over wire. 10:05:15 IVUS pass to LAD lesion performed. 10:05:16 IVUS catheter removed over wire. 10:06:40 Place stent Inflation Number: 1 A JOSSIE RX 3.5 x 15 stent ([id number]) was prepped and advanced across the Prox LAD. The stent was deployed at 17 ALEX for 0:04 (min:sec). 10::49 Inflation number: 2 The stent balloon was then re-inflated across the Prox LAD to 15 ALEX for 0:07 (min:sec). 10:07:20 Wire redirected to CIRC/OM. 10:08:26 Stent catheter was removed intact over wire. 10:09:10 Versed 1 mg I.V. was administered by Kulwant Magallon RN; for sedation; 10:09:24 Place stent Inflation Number: 1 A JOSSIE RX 3.0 x 22 stent ([id number]) was prepped and advanced across the 1st Ob Mei. The stent was deployed at 17 ALEX for 0:07 (min:sec). 10::39 Stent catheter was removed intact over wire. 10::39 Wire removed. 10::40 Guide catheter removed. 10::47 Sheath removed intact; hemostasis achieved with Exoseal to the Right Femoral artery. 10:09:49 Procedure ended.(Physican Out) 10:10:21 EXOSEAL 7Fr (EX700) opened to sterile field. 10:11:03 Procedure type changed to Cath procedure, Diagnostic procedure, LHC, C w/Coronaries, FFR/IVUS, Intra-Coronary IVUS Initial, Sedation Charges, Moderate Sedation up to 15 minutes, PCI procedure, Coronary Stent, Coronary Stent Initial x2 10:11:50 Fluoroscopy time 05.30 minutes. 10:11:55 Fluoroscopy dose: 1368 mGy 10:11:55 Flurop Dose total: 1368 10:11:58 Contrast amount:Isovue 300 115ml. 10:11:59 Sharps counted by scrub and verified by R.N. 10:12:01 Insertion/operative site no bleeding no hematoma. 10:12:05 Post-op/insertion site Right Femoral artery dressed using a 4 x 4 and Tegaderm. 10:12:08 Post right femoral artery:stable, clean and dry 10:12:09 Post Procedure Pulses reassessed and unchanged 10:12:14 Post-procedure physical assessment completed. ASA score P 2 - A patient with mild systemic disease as per Abraham Dumont MD. 10:12:16 Post procedure rhythm: unchanged. 10:12:18 Estimated blood loss: 10 ml 10:12:20 Post procedure instruction explained to patient.Patient verbalizes understanding. 10:12:20 Patient needs reinforcement of post procedure teaching. 10:12:24 Procedure Complication : No complications 10:12:57 Procedure and supply charges have been captured, reviewed, submitted and are correct. 10:14:07 Vital chart was stopped 10:14:07 See physician's report for complete and final results. 10:14:09 Report given to Pre/Post Procedure Room. 10:14:12 Patient transfered to Pre/Post Procedure Room with Stretcher. 10:14:22 Procedure ended. 10:14:22 Full Disclosure recording stopped 10:14:25 End room use (Document Last) Intervention Summary Intervention Notes Time ActionType Lesion and Equipment Used Action# Pressure Duration Attributes 10:06:40 Place stent Prox LAD JOSSIE RX 3.5 x 1 17 00:04 15 stent ([id number]) 10:06:49 Reinflate Prox LAD JOSSIE RX 3.5 x 2 15 00:07 stent 15 stent balloon ([id number]) 10:09:24 Place stent 1st Ob Mei JOSSIE RX 3.0 x 1 17 00:07 22 stent ([id number]) Device Usage Item Name Manufacture Quantity Catalog Number Hospital Part Current M inimal Lot# / Charge Number Stock Stock Serial# Code ACIST Syringe Acist 1 92943 175665 686493 587532 2 0 (74618) Medical Systems Inc Bag Decanter Microtek 1 680916 93204 972041 5 () Medical Inc. Medline Cath Medline 1 [id number] 704241 33089 638279 5 Pack ([id number]) DIAGNOSTIC St Gt 1 455798 180260 427228 704256 3 0 WIRE .035 260cm J wire (124438) ACIST Hand Acist 1 34896 182162 286292 927930 5 Control Medical (14465) Systems Inc ACIST Manifold Acist 1 63901 020966 051792 835070 5 (99506) Medical Systems Inc DIAGNOSTIC Cardinal 1 MG6707 282438 31173 089429 3 0 Multipack 5Fr Health catheter set (HM2100) Tegaderm 4 x 4 3M 1 1626W 793808 823890 004530 5 (1626W) SHEATH 5FR Terumo 1 OHD136 824977 408770 298774 5 [place] (SAJ593) MULTIPACK Cardinal 1 898117 5 Pigtail 5 Fr Health catheter MULTIPACK JL Cardinal 1 850176 5 4.0 5Fr Health catheter MULTIPACK 3DRC Cardinal 1 809047 5 5Fr catheter Health SHEATH 7FR Terumo 1 DNC942 395609 263292 756456 5 [place] ([id number]) INFLATOR Merit Merit 1 SQ8020 926391 751510 416061 1 5 [employer] Stix ([id number]) CHOICE PT [place] 1 [id number] 773403 937111 767271 5 Extra Support Scientific 182cm wire ([id number]) [place] 1 39660N 562260 287225 226341 8 [place] IVUS Catheter (43694F) GUIDE 7FR EBU Medtronic 1 [id number] 420469 356576 758159 0 3.5 catheter ([id number]) GUIDE 7FR EBU Medtronic 1 [id number] 195345 788296 900300 0 4.0 SH catheter ([id number]) JOSSIE RX 3.5 x Medtronic 1 [id number] 743563 4834595 256942 5 [id number] 15 stent ([id number]) JOSSIE RX 3.0 x Medtronic 1 [id number] 374508 4430598 178101 5 [id number] 22 stent ([id number]) EXOSEAL 7Fr Cardinal 1 EX700 737815 505880 641059 5 (EX700) Health Signature Audit Dante Stage Time Signature Unsigned Intra-Procedure 05/15/2018 Jackie 10:15:24 AM Counts RT(R) Signatures Monitor : Jackie Signature : Counts RT Date : Time : [place] [id number] [place] [address]
[~2018-05-15 06:33] MED LIST changes: -HYDRALAZINE HCL50 MG PO; -ISOSORBIDE DINI10 MG PO; -NITROQUICK0.4 MG SL; -NORVASC5 MG PO
[2018-05-15] MEDS ORDERED: ISOSORBIDE DINI10 MG PO (07:26)
[2018-05-15] MEDS ORDERED: NORVASC5 MG PO (07:27)
[2018-05-15] MEDS ORDERED: HYDRALAZINE HCL50 MG PO (07:28)
[2018-05-15] MEDS ORDERED: NITROQUICK0.4 MG SL (07:28)
[2018-05-15 07:41] VITALS: BP 110/75; Ht 180.3 cm; Wt 129.5 kg
[2018-05-15 08:06] LABS: BASOPHILS 0.2 % (0-2); EOSINOPHILS 1.8 % (0-7); HEMATOCRIT 42.8 % (42.0-54.0); HEMOGLOBIN 15.7 g/dL (13.5-17.5); IMMATURE GRANULOCYTES 0.2 % (0-5); LYMPHOCYTES 32.1 % (15-50); MCH 32.4 pg (26.0-34.0); MCHC 36.7 g/dL (31.0-37.0); MCV 88.4 fL (80.0-100.0); MONOCYTES 9.7 % (2-11); PLATELET COUNT 166 10x3/uL (130-400); RBC 4.84 10x6/uL (4.20-6.10); RDW 12.8 % (11.5-14.5); WBC 5.5 10x3/uL (4.8-10.8)
[2018-05-15 08:28] LABS: CALC OSMOLALITY 281 mosm/kg (275-300); CALCIUM 8.7 mg/dL (8.5-10.1); CHLORIDE - SERUM 105 mmol/L (98-107); CREATININE - SERUM 0.9 mg/dL (0.6-1.3); GLUCOSE 118 mg/dL (74-106); POTASSIUM - SERUM 4.5 mmol/L (3.5-5.1); SODIUM 139 mmol/L (136-145); UREA NITROGEN 20 mg/dL (7-18); eGFR NON AFRICAN AMERICAN > 90 mL/min (90-120)
--- NOTE | 2018-05-15 10:40 | NUR ---
PT RESTING COMFORTABLY. VSS. RIGHT GROIN DRESSING C/D/I. NO S/S OF HEMATOMA NOTED. RIGHT PEDAL PULSE PALPABLE. CALL LIGHT WITHIN REACH.
--- NOTE | 2018-05-15 11:12 | NUR ---
PT RESTING COMFORTABLY. VSS. RIGHT GROIN DRESSING C/D/I. NO S/S OF HEMATOMA NOTED. RIGHT PEDAL PULSE PALPABLE
--- NOTE | 2018-05-15 11:40 | NUR ---
RIGHT GROIN DRESSING C/D/I. NO S/S OF HEMATOMA NOTED. VSS. PT MORE ALERT. HANDED HIM HIS CELL PHONE PER IS REQUEST.
--- NOTE | 2018-05-15 12:14 | NUR ---
PT RESTING COMFORTABLY. VSS. RIGHT GROIN DRESSING C/D/I. NO S/S OF HEMATOMA NOTED. RIGHT PEDAL PULSE PALPABLE. PT DENIES NAUSEA. TOLERATING WATER.
--- NOTE | 2018-05-15 12:50 | NUR ---
DR. GONZALEZ ROUNDED AND SPOKE WITH PT. PLAN FOR PT TO COME BACK NEXT FRIDAY FOR ANOTHER HEART CATH.
--- NOTE | 2018-05-15 13:15 | NUR ---
HEAD OF BED INC TO 30 DEGREES. PT TOLERATED WELL. RIGHT GROIN DRESSING C/D/I. NO S/S OF HEMATOMA NOTED. RIGHT PEDAL PULSE PALPABLE. VSS. PT SET UP WITH SANDWICH TRAY AND DRINK. CALL LIGHT WITHIN REACH.
--- NOTE | 2018-05-15 13:45 | NUR ---
RIGHT AC PIV D/C'D WITH CATH TIP INTACT. PT TOLERATED WELL. RIGHT GROIN DRESSING C/D/I. NO S/S OF HEMATOMA NOTED. PT INSTRUCTED TO GET UP AND DRESSED.
--- NOTE | 2018-05-15 14:00 | NUR ---
DISCUSSED DISCHARGE INSTRUCTIONS WITH PT. HE VOICED UNDERSTANDING. [facility] CALLED INTO [facility] IN CASH PER PT'S REQUEST. RIGHT GROIN DRESSING C/D/I. NO S/S OF HEMATOMA.
--- NOTE | 2018-05-15 14:07 | NUR ---
PT AMBULATED TO RESTROOM. VOIDED WITHOUT DIFFICULTY. REFUSED WHEELCHAIR. AMBULATED TO WAITING ROOM AND WAITING ON HIS RIDE TO ARRIVE. NO S/S OF DISTRESS NOTED. ALL BELONGINGS IN HAND.
--- NOTE | 2018-05-19 11:18 | OP ---
PATIENT NAME: ARVIN RONDON MEDICAL RECORD: [id number] :63 LOCATION:D.CAT ADMISSION DATE: SURGEON: KATHARINA GONZALEZ MD DATE OF OPERATION: 05/15/2018 PROCEDURES: 1. PTCA stent LAD. 2. PTCA stent left circumflex. 3. Intravascular ultrasound. 4. Left heart catheterization. 5. Selective coronary angiography. 6. Left ventriculogram. INDICATION: Angina and coronary artery disease. PROCEDURE IN DETAIL: After informed consent was obtained and after a detailed description of risks, benefits as well as alternative therapies, the patient elected to proceed with angiogram and angioplasty. The right femoral area was prepped and draped in normal sterile fashion. Right femoral artery was cannulated via modified Seldinger technique with placement of a 7-Colombian sheath. All catheters exchanged through this sheath. FINDINGS: The left ventriculogram was performed in a standard 30-degree SAENZ view, reveals good cardiac wall motion throughout all segments. Overall ejection fraction estimated 60%. SELECTIVE CORONARY ANGIOGRAPHY: 1. Left main is with no significant angiographic disease. 2. Left anterior descending has 80% stenosis just prior to the previously placed stent in the mid vessel confirmed by intravascular ultrasound. 3. Left circumflex has 85% in-stent restenosis in the mid vessel. 4. Right coronary artery has 90% in-stent restenosis mid vessel. PTCA STENT OF THE LAD AND CIRCUMFLEX: The LAD was addressed with a 3.5 x 15 mm Ian, the circumflex with a 3.0 x 22 mm Ian. Result was 0% residual stenosis. OVERALL IMPRESSION: Successful PTCA stent of the LAD and circumflex, both going from 80% to 85% initial stenosis to 0% residual. PLAN: PTCA stent of the RCA in the near future. TRANSINT:[id number] Voice Confirmation ID: [id number] DOCUMENT ID: [id number] KATHARINA GONZALEZ MD at 1118 CC: [id number] DICTATION DATE: 05/15/18 1019 CARVING MACHINE OPERATOR: 05/15/18 1034 DEP CLI 05/15/18 [place] [address]
== END 2018-05-15 14:07 | disposition home or self-care (01) ==
LOC: D.CATH 06:33
PROVIDERS: Internal Medicine Interventional Cardiology
DX: I25.119 Atherosclerotic heart disease of native coronary artery with unspecified angina pectoris (principal); Z01.812 Encounter for preprocedural laboratory examination

== ENCOUNTER 2018-05-18 06:20 | Outpatient (CLI) | payer OTHER ==
[~2018-05-18] VITALS: Ht 180.3 cm; Wt 130.9 kg
--- NOTE | ~2018-05-18 | HEMODYNAMI ---
PATIENT:ARVIN RONDON MEDICAL RECORD: [id number] : 63 LOCATION:D.CAT ADMISSION DATE: 05/18/18 Generatedon:05/18/20189:38 Patient name: ARVIN RONDON Patient #: [id number] SSN: : 1965 Date of study: 05/18/2018 Page: Of Hemodynamic Procedure Report Patient Data Patient Demographics Procedure consent was obtained First Name: ARVIN Gender: Male Last Name: ALCON : 1965 [facility] Initial: ALVINO Age: 52 year(s) Patient #: [id number] Race: Unknown Additional ID: [id number] Contact details Address: [place] [address] State: [place] City: [place] Zip code: [address] Past Medical History Allergies: No known allergies Admission Admission Data Admission Date: 05/18/2018 Admission Time: 6:20 Lab Results Lab Result Date: 05/18/2018 Lab Result Time: 7:45 Biochemistry Name Units Result Min Max BUN mg/dl 10 --(-*--)-- 7 18 Creatinine mg/dl 0.7 --(*---)-- 0.6 1.3 CBC Name Units Result Min Max Hematocrit % 15.4 *-(----)-- 42 54 Hemoglobin g/dl 15.4 --(-*--)-- 13.5 17.5 Procedure Procedure Types Cath Procedure Diagnostic Procedure Sedation Charges Moderate Sedation up to 15 minutes PCI Procedure Coronary Stent Coronary Stent Initial Procedure Description Procedure Date Procedure Date: 05/18/2018 Procedure Start Time: 9:12 Procedure End Time: 9:37 Procedure Staff Name Function Abraham Dumont MD Performing Physician Jayjay Ortiz RT Monitor Kulwant Magallon RN Nurse Jackie Uriarte RT Scrub Procedure Data Cath Procedure Fluoroscopy Diagnostic fluoroscopy Total fluoroscopy Time: 9 time: 9 min min Diagnostic fluoroscopy Total fluoroscopy dose: dose: 762.54 mGy 762.54 mGy Contrast Material Contrast Material Type Amount (ml) Isovue 300 78 Entry Location Entry Primary Successful Side Size Upsize Upsize Entry Closure Succes sful Closure Location (Fr) 1 (Fr) 2 (Fr) Remarks Device Remarks Femoral Right 6 Fr Exoseal artery Short Estimated blood loss: 10 ml Procedure Complications No complications Procedure Medications Medication Administration Route Dosage 0.9% NaCl I.V. 100 ml/hr Oxygen etCO2 Nasal cannula 2 l/min Heparin Flush Bag added to field 2 bags (1000units/500ml NS) Lidocaine 2% added to field 20 Versed I.V. 2 mg Fentanyl I.V. 100 mcg Heparin Bolus I.V. 4000 units Nitroglycerin IC/IA I.C. 200 mcg Versed I.V. 1 mg Hemodynamics Rest HGB: 15.4 (g/dl) Heart Rate: 71 (bpm) Snapshots Pre Cath Intra NCS Post Cath Vital Signs Time Heart Resp SPO2 etCO2 NIBP (mmHg) Rhythm Pain Sedation Rate (ipm) (%) (mmHg) Status Level (bpm) 8:54:47 68 15 100 33.4 136/86(108) NSR 0 (11) 10(A) , No pain 8:59:12 65 17 100 29.6 127/84(108) NSR 0 (11) 10(A) , No pain 9:03:32 66 18 100 32.6 129/79(101) NSR 0 (11) 10(A) , No pain 9:07:48 64 15 98 31.1 115/79(93) NSR 0 (11) 10(A) , No pain 9:12:04 67 11 98 34.9 117/81(96) NSR 0 (11) 9(A) , No pain 9:16:20 60 14 99 15.1 114/71(90) NSR 0 (11) 9(A) , No pain 9:20:28 58 12 99 36.4 106/72(86) NSR 0 (11) 9(A) , No pain 9:24:40 76 17 97 31.1 113/78(99) NSR 0 (11) 9(A) , No pain 9:28:56 66 13 96 36.4 113/74(87) NSR 0 (11) 10(A) , No pain 9:33:10 68 17 96 36.4 123/78(99) NSR 0 (11) 10(A) , No pain 9:37:30 64 13 98 37.2 113/78(92) NSR 0 (11) 10(A) , No pain Medications Time Medication Route Dose Verified Delivered Reason Notes Effectiveness by by 9:02:40 0.9% NaCl I.V. 100 Kulwant Kulwant Per physician ml/hr Sherita Magallon RN RN 9:02:50 Oxygen etCO2 2 Kulwant Kulwant for low 02 sats Nasal l/min Sherita Magallon cannula RN RN 9:02:59 Heparin Flush added 2 Kulwant Kulwant used for Bag to bags Sherita Magallon procedure (1000units/500ml field RN RN NS) 9:03:10 Lidocaine 2% added 20ml Kulwant Kulwant for local to vial Sherita Magallon anesthetic field RN RN 9:08:50 Versed I.V. 2 mg Kulwant Kulwant for sedation Sherita Magallon RN RN 9:08:58 Fentanyl I.V. 100 Kulwant Kulwant for sedation mcg Sherita Magallon RN RN 9:16:27 Heparin Bolus I.V. 4000 Kulwant Kulwant for units Sherita Magallon anticoagulation RN RN 9:23:46 Nitroglycerin I.C. 200 Kulwant Abraham for IC/IA mcg Sherita Dumont MD vasodilation RN 9:26:54 Versed I.V. 1 mg Kulwant Kulwant for sedation Sherita Magallon RN superintendent sanitation Log Time Note 8:39:48 Time tracking: Regular hours (M-F 7:00 - 5:00) 8:39:51 Plan of Care:Hemodynamics will remain stable., Cardiac rhythm will remain stable., Comfort level will be maintained., Respiratory function will remain adequate., Patient/ family verbilizes understanding of procedure., Procedure tolerated without complication., Recovers from procedure without complications.. 8:43:31 Kulwant Magallon RN sent for patient. Start room use. 8:46:58 Patient received from Pre/Post Procedure Room to CCL 3 Alert and oriented. Tansferred to table in Supine position. 8:46:59 Warm blankets applied, and anahy hugger turned on for patient comfort. 8:47:00 Correct patient and procedure confirmed by team. 8:47:02 Signed procedure consent form obtained from patient. 8:47:03 ECG and BP/O2 sat monitors applied to patient. 8:47:05 Full Disclosure recording started 8:53:34 Vital chart was started 8:54:57 Baseline sample Acquired. 8:55:00 Rhythm: sinus rhythm 8:55:06 H&P Date Dictated: 05/18/2018 New H&P dictated by physician.. 8:55:08 Pre-procedure instructions explained to patient. 8:55:09 Pre-op teaching completed and patient verbalized understanding. 8:55:11 Family in waiting room. 8:55:12 Patient NPO since Midnight. 8:55:16 Patient allergic to No known allergies 8:55:18 Is the patient allergic to Iodine/contrast media? No. 8:55:18 Is patient on blood thinner?Yes 8:55:21 ACC The patient was administered the following blood thiners within the last 24 hours: ACCPlavix 8:55:23 Patient diabetic? No. 8:55:25 Previous problem with sedation/anesthesia? No ? 8:55:27 Snore? Yes 8:55:27 Sleep apnea? No 8:55:28 Deviated septum? No 8:55:29 Opens mouth fully? Yes 8:55:29 Sticks out tongue? Yes 8:55:31 Airway obstruction? No ? 8:55:33 Dentures? No ? 8:55:35 Pre procedure: right dorsailis pedis pulse 2+ Normal; easily identifiable; not easily obliterated 8:55:38 Pre procedure: left dorsailis pedis pulse 2+ Normal; easily identifiable; not easily obliterated 8:55:41 Patient pain scale 0/10 ?. 8:55:45 IV patent on arrival in left forearm with 0.9% NaCl at [facility]. 9:02:40 0.9% NaCl 100 ml/hr I.V. was administered by Kulwant Magallon RN; Per physician; 9:02:50 Oxygen 2 l/min etCO2 Nasal cannula was administered by Kulwant Magallon RN; for low 02 sats; 9:02:59 Heparin Flush Bag (1000units/500ml NS) 2 bags added to field was administered by Kulwant Magallon RN; used for procedure; 9:03:10 Lidocaine 2% 20ml vial added to field was administered by Kulwant Magallon RN; for local anesthetic; 9:04:36 Lab Result : BUN 10 mg/dl 9:04:36 Lab Result : Creatinine 0.7 mg/dl 9::36 Lab Result : Hemoglobin 15.4 g/dl 9::36 Lab Result : Hematocrit 15.4 % 9:04:39 Lab results completed and on chart. 9:05:30 Right groin area was prepped with chlora-prep and draped in sterile fashion 9:05:31 Alarms reviewed by R. N. 9:05:32 Sharps counted by scrub and verified by R.N. 9:06:15 ACIST Syringe (46478) opened to sterile field. 9:06:16 Bag Decanter (2002S) opened to sterile field. 9:06:16 Medline Cath Pack ([id number]) opened to sterile field. 9:06:18 ACIST Manifold (32071) opened to sterile field. 9:06:19 ACIST Hand Control (68158) opened to sterile field. 9:06:21 Tegaderm 4 x 4 (1626W) opened to sterile field. 9:06:24 DIAGNOSTIC WIRE .035 260cm J wire (751795) opened to sterile field. 9:06:34 SHEATH 6FR [place] (ZER164) opened to sterile field. 9:06:35 Zero performed for pressure channel P1 9:06:38 Zero performed for pressure channel P1 9:06:41 Zero performed for pressure channel P1 9:06:54 Zero performed for pressure channel P1 9:07:11 CHOICE PT Extra Support 182cm wire ([id number]) opened to sterile field. 9:07:12 INFLATOR Merit BasixCompak (IA6894) opened to sterile field. 9:08:20 Physician arrived 9:08:21 --------ALL STOP TIME OUT------ 9:08:21 Final Timeout: patient, procedure, and site verified with staff and physician. All members of the team are in agreement. 9:08:22 Right groin site verified by team. 9:08:27 Fire Safety Assessment: A--An alcohol-based skin anteseptic being used preoperatively., C--Open oxygen or nitrous oxide is being used., D--An ESU, laser, or fiber-optic light is being used. 9:08:29 Physical assessment completed. ASA score P 2 - A patient with mild systemic disease as per Abraham Dumont MD. 9:08:31 Sedation plan: IV Moderate Sedation Medication:Versed, Fentanyl 9:08:50 Versed 2 mg I.V. was administered by Kulwant Magallon RN; for sedation; 9:08:58 Fentanyl 100 mcg I.V. was administered by Kulwant Magallon RN; for sedation; 9:12:53 Procedure started. 9:12:55 Local anesthetic to right femoral artery with Lidocaine 2% by Abraham Dumont MD.INITIAL ACCESS ONLY 9:13:02 A 6 Fr Short sheath was inserted into the Right Femoral artery 9:13:09 GUIDE 6FR AR 2.0 catheter ([id number]) opened to sterile field. 9:13:16 6 Fr AR 2 guide catheter was inserted over the wire 9:14:05 CHOICE PT ES wire advanced. 9:14:30 Wire advanced across lesion. 9:16:27 Heparin Bolus 4000 units I.V. was administered by Kulwant Magallon RN; for anticoagulation; 9:16:35 The JOSSIE RX 3.0 x 15 stent ([id number]) was advanced then removed because of failure to cross lesion 9:17:50 CHOICE PT Extra Support 182cm wire ([id number]) opened to sterile field. 9:19:40 CHOICE PT ES WIRE ADVANCED A CLARK WIRE. 9:20:22 CLARK WIRE REMOVED. 9:20:29 Inflate balloon Inflation number: 1 A EUPHORA 2.5 x 20 Balloon ([id number]) was prepped and advanced across the Prox RCA, then inflated to 21 ALEX for 0:10 (min:sec). 9:20:42 Inflation number: 2 The EUPHORA 2.5 x 20 Balloon ([id number]) was reinflated across the Prox RCA, to 17 ALEX for 0:10 (min:sec). 9:20:55 Inflation number: 3 The EUPHORA 2.5 x 20 Balloon ([id number]) was reinflated across the Prox RCA, to 21 ALEX for 0:10 (min:sec). 9:22:11 Inflation number: 1 The EUPHORA 2.5 x 20 Balloon ([id number]) was reinflated across the Dist RCA, to 5 ALEX for 0:10 (min:sec). 9:23:00 Balloon removed over the wire. 9:23:46 Nitroglycerin IC/IA 200 mcg I.C. was administered by Abraham Dumont MD; for vasodilation; 9:25:22 Place stent Inflation Number: 2 A JOSSIE RX 2.0 x 18 stent ([id number]) was prepped and advanced across the Dist RCA. The stent was deployed at 11 ALEX for 0:10 (min:sec). 9:25:32 Inflation number: 4 The stent balloon was then re-inflated across the Prox RCA to 21 ALEX for 0:10 (min:sec). 9:26:54 Versed 1 mg I.V. was administered by Kulwant Magallon RN; for sedation; 9:28:08 The JOSSIE RX 3.0 x 15 stent ([id number]) was advanced then removed because of failure to cross lesion 9:29:55 Place stent Inflation Number: 5 A JOSSIE RX 2.0 x 12 stent ([id number]) was prepped and advanced across the Prox RCA. The stent was deployed at 17 ALEX for 0:10 (min:sec). 9:30:29 Stent catheter was removed intact over wire. 9:31:37 Place stent Inflation Number: 6 A JOSSIE RX 3.0 x 15 stent ([id number]) was prepped and advanced across the Prox RCA. The stent was deployed at 15 ALEX for 0:10 (min:sec). 9:31:42 Inflation number: 7 The stent balloon was then re-inflated across the Prox RCA to 15 ALEX for 0:10 (min:sec). 9:31:56 Stent catheter was removed intact over wire. 9:31:56 Wire removed. 9:31:56 Guide catheter removed. 9:32:04 EXOSEAL 6Fr (EX600) opened to sterile field. 9:32:38 Sheath removed intact; hemostasis achieved with Exoseal to the Right Femoral artery. 9:32:40 Procedure ended.(Physican Out) 9:35:35 Fluoroscopy time 09.00 minutes. 9:35:40 Flurop Dose total: 762.54 9:35:40 Fluoroscopy dose: 762.54 mGy 9:35:44 Contrast amount:Isovue 300 78ml. 9:35:52 Sharps counted by scrub and verified by R.N. 9:36:22 Insertion/operative site no bleeding no hematoma. 9:36:26 Post-op/insertion site Right Femoral artery dressed using a 4 x 4 and Tegaderm. 9:36:29 Post right femoral artery:stable, soft, clean and dry 9:36:31 Post Procedure Pulses reassessed and unchanged 9:36:33 Post-procedure physical assessment completed. ASA score P 2 - A patient with mild systemic disease as per Abraham Dumont MD. 9:36:35 Post procedure rhythm: unchanged. 9:36:40 Estimated blood loss: 10 ml 9:36:41 Post procedure instruction explained to patient.Patient verbalizes understanding. 9:36:41 Patient needs reinforcement of post procedure teaching. 9:36:54 Procedure type changed to Cath procedure, Diagnostic procedure, Sedation Charges, Moderate Sedation up to 15 minutes, PCI procedure, Coronary Stent, Coronary Stent Initial 9:37:14 Procedure and supply charges have been captured, reviewed, submitted and are correct. 9:37:17 Procedure Complication : No complications 9:37:18 Vital chart was stopped 9:37:19 See physician's report for complete and final results. 9:37:20 Report given to Pre/Post Procedure Room. 9:37:23 Patient transfered to Pre/Post Procedure Room with Stretcher. 9:37:24 Procedure ended. 9:37:24 Full Disclosure recording stopped 9:37:29 End room use (Document Last) Intervention Summary Intervention Notes Time ActionType Lesion and Equipment Used Action# Pressure Duration Attributes 9:16:35 Discard JOSSIE RX 3.0 x Stent 15 stent ([id number]) 9:20:29 Inflate Prox RCA EUPHORA 2.5 x 1 21 00:10 balloon 20 Balloon ([id number]) 9:20:42 Reinflate Prox RCA EUPHORA 2.5 x 2 17 00:10 balloon 20 Balloon ([id number]) 9:20:55 Reinflate Prox RCA EUPHORA 2.5 x 3 21 00:10 balloon 20 Balloon ([id number]) 9:22:11 Reinflate Dist RCA EUPHORA 2.5 x 1 5 00:10 balloon 20 Balloon ([id number]) 9:25:22 Place stent Dist RCA JOSSIE RX 2.0 x 2 11 00:10 18 stent ([id number]) 9:25:32 Reinflate Prox RCA JOSSIE RX 2.0 x 4 21 00:10 stent 18 stent balloon ([id number]) 9:28:08 Discard JOSSIE RX 3.0 x Stent 15 stent ([id number]) 9:29:55 Place stent Prox RCA JOSSIE RX 2.0 x 5 17 00:10 12 stent ([id number]) 9:31:37 Place stent Prox RCA JOSSIE RX 3.0 x 6 15 00:10 15 stent ([id number]) 9:31:42 Reinflate Prox RCA JOSSIE RX 3.0 x 7 15 00:10 stent 15 stent balloon ([id number]) Device Usage Item Name Manufacture Quantity Catalog Number Hospital Part Current M inimal Lot# / Charge Number Stock Stock Serial# Code ACIST Syringe Acist 1 33371 632505 323205 905389 2 0 (49420) Medical Systems Inc Bag Decanter Microtek 1 2001S 383231 57034 850710 5 (2001S) Medical Inc. Medline Cath Medline 1 [id number] 391678 15560 686421 5 Pack ([id number]) ACIST Manifold Acist 1 32270 973268 149894 617619 5 (01491) Medical Systems Inc ACIST Hand Acist 1 85191 308971 116827 566205 5 Control Medical (80327) Systems Inc Tegaderm 4 x 4 3M 1 1626W 087537 301914 737228 5 (1626W) DIAGNOSTIC St Gt 1 545864 494926 102470 561176 3 0 WIRE .035 260cm J wire (209301) SHEATH 6FR Terumo 1 YVO537 382833 465339 547556 4 0 [place] (SWK746) CHOICE PT [place] 2 [id number] 829972 128205 425581 5 Extra Support Scientific 182cm wire ([id number]) INFLATOR Merit Merit 1 OT1191 855921 739351 517393 1 5 VT Silicon (OK6140) GUIDE 6FR AR Medtronic 1 QS1OG72 152477 72665 283053 1 2.0 catheter (SU7WI77) JOSSIE RX 3.0 x Medtronic 1 [id number] 142394 8857783 005902 5 [id number] 15 stent ([id number]) EUPHORA 2.5 x Medtronic 1 [id number] 130490 076393 985736 5 [id number] 20 Balloon ([id number]) JOSSIE RX 2.0 x Medtronic 1 [id number] 882185 9267440 995692 5 [id number] 18 stent ([id number]) JOSSIE RX 2.0 x Medtronic 1 [id number] 432259 6886283 583320 5 [id number] 12 stent ([id number]) EXOSEAL 6Fr Cardinal 1 EX600 702167 808981 174881 1 0 (EX600) Health Signature Audit Leslie Stage Time Signature Unsigned Intra-Procedure 05/18/2018 Jayjay Ortiz 9:37:54 AM RT(R) Signatures Monitor : Jayjay Ortiz RT Signature : Date : Time : [id number] [place] [address]
[~2018-05-18 06:20] MED LIST changes: +HYDRALAZINE HCL50 MG PO; +ISOSORBIDE DINI10 MG PO; +NITROQUICK0.4 MG SL; +NORVASC5 MG PO
[2018-05-18 07:50] VITALS: BP 121/82; Ht 180.3 cm; Wt 130.9 kg
[2018-05-18 07:55] LABS: BASOPHILS 0.2 % (0-2); EOSINOPHILS 2.2 % (0-7); HEMATOCRIT 42.4 % (42.0-54.0); HEMOGLOBIN 15.4 g/dL (13.5-17.5); IMMATURE GRANULOCYTES 0.2 % (0-5); LYMPHOCYTES 27.2 % (15-50); MCHC 36.3 g/dL (31.0-37.0); MEAN PLATELET VOLUME 8.7 fL (7.4-10.4); MONOCYTES 10.7 % (2-11); NEUTROPHILS 59.5 % (40-80); PLATELET COUNT 150 10x3/uL (130-400); RBC 4.82 10x6/uL (4.20-6.10); RDW 12.6 % (11.5-14.5); WBC 5.5 10x3/uL (4.8-10.8)
[2018-05-18 07:59] LABS: CALC OSMOLALITY 271 mosm/kg (275-300); CALCIUM 8.8 mg/dL (8.5-10.1); CARBON DIOXIDE 23.4 mmol/L (21.0-32.0); CHLORIDE - SERUM 102 mmol/L (98-107); CREATININE - SERUM 0.7 mg/dL (0.6-1.3); GLUCOSE 117 mg/dL (74-106); POTASSIUM - SERUM 4.1 mmol/L (3.5-5.1); SODIUM 136 mmol/L (136-145); UREA NITROGEN 10 mg/dL (7-18); eGFR NON AFRICAN AMERICAN > 90 mL/min (90-120)
--- NOTE | 2018-05-19 11:18 | HP ---
PATIENT: ARVIN ANGELES MEDICAL RECORD: [id number] ACCOUNT: [id number] LOCATION:[place] : 63 ADMISSION DATE: 05/18/18 PCP: NYA ALEJANDRO HISTORY AND PHYSICAL EXAMINATION ADMITTING DIAGNOSES: 1. Angina. 2. Coronary artery disease. 3. Recent percutaneous transluminal coronary angioplasty stent left anterior descending and circumflex with concomitant disease to right coronary artery. 4. Hypertension. HISTORY OF PRESENT ILLNESS: Mr. Angeles presents with unstable anginal symptomatology, found to have 3-vessel coronary artery disease, underwent PTCA stent of the LAD and circumflex, now brought back for PTCA stent of the RCA. PHYSICAL EXAMINATION: GENERAL APPEARANCE: Well-nourished, well-developed, appears stated age. Level of distress, comfortable. PSYCHIATRIC: Mental status, alert, normal affect. Orientation, oriented to time, place and person. EYES: Lids and conjunctiva, noninjected. No discharge, no pallor. ENT: Lips, teeth, gums, normal dentition. Oropharynx, no cyanosis, no pallor. NECK: Carotid arteries, bilateral normal upstroke, no bruits, no thrills. JUGULAR VEINS: No jugular venous pressure or distention. CERVICAL LYMPH NODES: Nontender, nonenlarged. THYROID: Not enlarged. Nontender. No nodules. LUNGS: Respiratory effort, unlabored. CHEST: Normal curvature. No thoracic deformity. No chest wall tenderness. Percussion, resonant. Auscultation, clear. No wheezes, no rales, no rhonchi. CARDIOVASCULAR: Precordial exam, nondisplaced. No heaves or pericardial thrills. Rate and rhythm, regular. Heart sounds, normal S1, normal S2. No S3, no gallop, no rub. Systolic murmur, not heard. Diastolic murmur, not heard. EXTREMITIES: No cyanosis, no edema. Peripheral pulses, full and equal in all extremities, except as noted. No bruits appreciated. ABDOMEN: Soft, nondistended. Normal aorta. No bruit. Nontender. No masses. Liver, nontender, no hepatomegaly. Spleen, nontender, no splenomegaly. MUSCULOSKELETAL: No joint tenderness. No joint swelling. No erythema. NEUROLOGICAL: Normal gait, normal strength, normal tone. SKIN: Warm and dry. OVERALL IMPRESSION: Anginal symptomatology with significant disease of the right coronary artery. We will proceed with percutaneous transluminal coronary angioplasty stent of the right coronary artery. TRANSINT:[id number] Voice Confirmation ID: [id number] DOCUMENT ID: [id number] HISTORY AND PHYSICAL [id number] ARVIN ANGELES JEFFREY MD at 1118 CC: [id number] DICTATION DATE: 05/17/18 1016 MAID CLEANING COOKING: 05/17/18 1024 DEP CLI 05/18/[address] [address]
--- NOTE | 2018-05-19 11:19 | OP ---
PATIENT NAME: ARVIN RONDON MEDICAL RECORD: [id number] :63 LOCATION:D.CAT ADMISSION DATE: SURGEON: KATHARINA GONZALEZ MD DATE OF OPERATION: 05/18/2018 PROCEDURES: 1. PTCA stent RCA. 2. Selective coronary angiography. INDICATION: Angina and coronary artery disease. PROCEDURE IN DETAIL: After informed consent was obtained and after a detailed description of the risks, benefits as well as alternative therapies, the patient elected to proceed with angiogram and angioplasty. The right femoral area was prepped and draped in normal sterile fashion. Right femoral artery was cannulated via modified Seldinger technique with placement of 6-Mongolian sheath. All catheters exchanged through this sheath. FINDINGS: The right coronary has a 90% stenosis that is in-stent restenosis. This was addressed with a 2.5 balloon, yielded a distal dissection in the vessel. Stenting was undertaken with a 2.0 x 18, 2.0 x 12, and a 3.0 x 15 mm [place] stent. Result was 0% residual stenosis. OVERALL IMPRESSION: Successful percutaneous transluminal coronary angioplasty stent of the right coronary artery going from 90% in-stent restenosis to 0% residual. TRANSINT:[id number] Voice Confirmation ID: [id number] DOCUMENT ID: [id number] KATHARINA GONZALEZ MD at 1119 CC: [id number] DICTATION DATE: 05/18/18 0937 ROOMING HOUSE INSPECTOR: 05/18/18 1027 DEP CLI 05/18/[address] [address]
== END 2018-05-18 13:40 | disposition home or self-care (01) ==
LOC: D.CATH 06:20
PROVIDERS: Internal Medicine Interventional Cardiology
DX: I25.119 Atherosclerotic heart disease of native coronary artery with unspecified angina pectoris (principal); T82.855A Stenosis of coronary artery stent, initial encounter; Z01.812 Encounter for preprocedural laboratory examination; Z95.5 Presence of coronary angioplasty implant and graft; I10 Essential (primary) hypertension

== ENCOUNTER 2018-11-02 15:47 | Emergency (ER) | payer OTHER ==
[~2018-11-02] VITALS: Ht 180.3 cm; Wt 125.0 kg
[2018-11-02 15:53] VITALS: Ht 180.3 cm; Wt 125.0 kg
[2018-11-02] MEDS ORDERED: KRILL OIL 1,001 EAC1 PO (15:58)
[2018-11-02] MEDS ORDERED: ZANTAC300 MG PO (16:00)
[2018-11-02 16:23] LABS: APTT 28.6 SECONDS (22.8-39.4); INR 1.11 (0.85-1.17); PROTIME 13.8 SECONDS (11.6-15.0)
[2018-11-02 16:30] LABS: ALBUMIN 3.8 g/dL (3.4-5.0); ALKALINE PHOSPHATASE 87 U/L (46-116); ALT (SGPT) 44 U/L (10-68); BILIRUBIN - TOTAL 0.83 mg/dL (0.2-1.3); CALC OSMOLALITY 253 mosm/kg (275-300); CALCIUM 9.2 mg/dL (8.5-10.1); CARBON DIOXIDE 24.6 mmol/L (21.0-32.0); CHLORIDE - SERUM 96 mmol/L (98-107); CREATININE - SERUM 0.8 mg/dL (0.6-1.3); GLUCOSE 94 mg/dL (74-106); POTASSIUM - SERUM 4.2 mmol/L (3.5-5.1); PROTEIN - SERUM 7.2 g/dL (6.4-8.2); SODIUM 128 mmol/L (136-145); UREA NITROGEN 5 mg/dL (7-18); eGFR NON AFRICAN AMERICAN > 90 mL/min (90-120)
[2018-11-02 16:36] LABS: BASOPHILS 0.2 % (0-2); EOSINOPHILS 1.2 % (0-7); HEMATOCRIT 39.3 % (42.0-54.0); IMMATURE GRANULOCYTES 0.2 % (0-5); MCH 32.8 pg (26.0-34.0); MCHC 38.2 g/dL (31.0-37.0); MEAN PLATELET VOLUME 8.8 fL (7.4-10.4); MONOCYTES 10.5 % (2-11); NEUTROPHILS 61.9 % (40-80); PLATELET COUNT 159 10x3/uL (130-400); RBC 4.57 10x6/uL (4.20-6.10); RDW 12.7 % (11.5-14.5); WBC 5.9 10x3/uL (4.8-10.8)
[2018-11-02 16:41] LABS: CKMB 1.8 U/L (0.0-3.6); CREATINE KINASE 198 UL (21-232); MAGNESIUM - SERUM 1.7 mg/dL (1.8-2.4)
[2018-11-02 16:46] LABS: TROPONIN-I < 0.017 ng/mL (0.000-0.060)
[2018-11-02 19:14] VITALS: BP 134/74
== END 2018-11-02 19:14 | disposition home or self-care (01) ==
LOC: D.ER 15:47
PROVIDERS: Family Medicine
DX: T65.891A Toxic effect of other specified substances, accidental (unintentional), initial encounter (principal); R07.81 Pleurodynia; R05 Cough; E87.1 Hypo-osmolality and hyponatremia

== ENCOUNTER 2018-12-28 09:33 | Emergency (ER) | payer OTHER ==
[~2018-12-28] VITALS: Ht 180.3 cm; Wt 125.9 kg
[~2018-12-28 09:33] MED LIST changes: +KRILL OIL 1,001 EAC1 PO; +ZANTAC300 MG PO
[2018-12-28 09:40] VITALS: Ht 180.3 cm; Wt 125.9 kg
[2018-12-28 10:05] LABS: BASOPHILS 0.1 % (0-2); EOSINOPHILS 2.5 % (0-7); HEMATOCRIT 40.3 % (42.0-54.0); HEMOGLOBIN 14.8 g/dL (13.5-17.5); IMMATURE GRANULOCYTES 0.2 % (0-5); MCH 32.9 pg (26.0-34.0); MCHC 36.7 g/dL (31.0-37.0); MCV 89.6 fL (80.0-100.0); MEAN PLATELET VOLUME 8.3 fL (7.4-10.4); MONOCYTES 10.4 % (2-11); NEUTROPHILS 55.8 % (40-80); PLATELET COUNT 159 10x3/uL (130-400); RDW 12.5 % (11.5-14.5); WBC 8.1 10x3/uL (4.8-10.8)
[2018-12-28 10:18] LABS: ALKALINE PHOSPHATASE 98 U/L (46-116); ALT (SGPT) 53 U/L (10-68); BILIRUBIN - TOTAL 0.43 mg/dL (0.2-1.3); CALC OSMOLALITY 260 mosm/kg (275-300); CALCIUM 8.7 mg/dL (8.5-10.1); CARBON DIOXIDE 27.4 mmol/L (21.0-32.0); CHLORIDE - SERUM 94 mmol/L (98-107); CREATININE - SERUM 0.8 mg/dL (0.6-1.3); GLUCOSE 96 mg/dL (74-106); POTASSIUM - SERUM 3.6 mmol/L (3.5-5.1); PROTEIN - SERUM 7.5 g/dL (6.4-8.2); SODIUM 131 mmol/L (136-145); UREA NITROGEN 7 mg/dL (7-18); eGFR NON AFRICAN AMERICAN > 90 mL/min (90-120)
[2018-12-28 10:28] LABS: CKMB 2.6 U/L (0.0-3.6); CREATINE KINASE 217 UL (21-232)
[2018-12-28 10:29] LABS: TROPONIN-I < 0.017 ng/mL (0.000-0.060)
[2018-12-28 12:00] VITALS: BP 108/68
== END 2018-12-28 12:30 | disposition home or self-care (01) ==
LOC: D.ER 09:33
PROVIDERS: Emergency Medicine
DX: M54.9 Dorsalgia, unspecified (principal); I25.10 Atherosclerotic heart disease of native coronary artery without angina pectoris; R07.89 Other chest pain

== ENCOUNTER 2019-02-07 14:29 | Emergency (ER) | payer OTHER ==
[~2019-02-07] VITALS: Ht 180.3 cm; Wt 109.1 kg
[2019-02-07 14:35] VITALS: Ht 180.3 cm; Wt 109.1 kg
[2019-02-07] MEDS ORDERED: FLUTICASONE PRO16 GM NASAL (15:35)
[2019-02-07] MEDS ORDERED: MUCINEX DM ER1 EAC1 PO (15:35)
[2019-02-07 15:40] VITALS: BP 136/74
== END 2019-02-07 15:41 | disposition home or self-care (01) ==
LOC: D.ER 14:29
DX: J01.90 Acute sinusitis, unspecified (principal); I10 Essential (primary) hypertension; Z95.5 Presence of coronary angioplasty implant and graft

== ENCOUNTER → 2019-07-19 10:28 | Outpatient (CLI) | payer OTHER ==
[2019-02-07 14:35] VITALS: BMI 33.5
[~2019-07-19 10:28] MED LIST changes: +FLUTICASONE PRO16 GM NASAL; +MUCINEX DM ER1 EAC1 PO
== END | disposition home or self-care (01) ==
LOC: D.HCCARDIO 10:28
PROVIDERS: ATTEND Internal Medicine Cardiovascular Disease
DX: I25.119 Atherosclerotic heart disease of native coronary artery with unspecified angina pectoris (principal)

== ENCOUNTER 2019-07-29 05:43 | Outpatient (CLI) | payer OTHER ==
[~2019-07-29] VITALS: Ht 180.3 cm; Wt 131.8 kg
--- NOTE | ~2019-07-29 | HEMODYNAMI ---
PATIENT:ARVIN RONDON MEDICAL RECORD: [id number] : 63 LOCATION:D.CAT ADMISSION DATE: 07/29/19 Generatedon:07/29/20199:50 Patient name: ARVIN RONDON Patient #: [id number] SSN: [id number] : 1965 Date of study: 07/29/2019 Page: Of Hemodynamic Procedure Report Patient Data Patient Demographics Procedure consent was obtained First Name: ARVIN Gender: Male Last Name: ALCON : 1965 Middle Initial: ALVINO Age: 53 year(s) Patient #: [id number] Race: SSN: [id number] Additional ID: [id number] Contact details Address: [place] [address] State: [place] City: [address] Zip code: [address] Past Medical History Allergies Allergen Reaction Date Comments Reported Other allergy 07/29/2019 DA Admission Admission Data Admission Date: 07/29/2019 Admission Time: 5:43 Arrival Date: 07/29/2019 Arrival Time: 0:00 [facility] #: [id number] Height (in.): 70.87 BSA: 2.47 (m2) Height (cm.): 180 BMI: 40.74 (kg/m2) Weight (lbs.): 291.01 Weight (kg.): 132 Lab Results Lab Result Date: 07/29/2019 Lab Result Time: 0:00 Biochemistry Name Units Result Min Max BUN mg/dl 11 --(-*--)-- 7 18 Creatinine mg/dl 0.8 --(-*--)-- 0.6 1.3 eGFR ml/min 90 --(*---)-- 90 120 NONAFRICAN CBC Name Units Result Min Max Hematocrit % 40.3 -*(----)-- 42 54 Hemoglobin g/dl 14.1 --(*---)-- 13.5 17.5 Procedure Procedure Types Cath Procedure Diagnostic Procedure LHC [facility] w/Coronaries Sedation Charges Moderate Sedation up to 30 minutes Procedure Description Procedure Date Procedure Date: 07/29/2019 Procedure Start Time: 9:23 Procedure End Time: 9:48 Procedure Staff Name Function Arvin Villarreal MD Performing Physician Christina Gonzalez RT Monitor Marika Casey RN Nurse Jayjay Ortiz RT Scrub Procedure Data Cath Procedure Fluoroscopy Diagnostic fluoroscopy Total fluoroscopy Time: 1.7 time: 1.7 min min Diagnostic fluoroscopy Total fluoroscopy dose: 990 dose: 990 mGy mGy Contrast Material Contrast Material Type Amount (ml) Isovue 300 80 Entry Location Entry Primary Successful Side Size Upsize Upsize Entry Closure Succes sful Closure Location (Fr) 1 (Fr) 2 (Fr) Remarks Device Remarks Femoral Right 5 Fr Exoseal artery Estimated blood loss: 5 ml Diagnostic catheters Device Type Used For End Catheter Placement MULTIPACK JL 4.0 5Fr Left Coronary catheter Angiography MULTIPACK 3DRC 5Fr Right Coronary catheter Angiography MULTIPACK Pigtail 5 Fr LV Angiography catheter Procedure Complications No complications Procedure Medications Medication Administration Route Dosage 0.9% NaCl I.V. 100 ml/hr Oxygen etCO2 Nasal cannula 2 l/min Lidocaine 2% added to field 20 Heparin Flush Bag added to field 2 bags (1000units/500ml NS) Versed I.V. 2 mg Fentanyl I.V. 50 mcg Fentanyl I.V. 50 mcg Hemodynamics Rest BSA: 2.47 (m2) HGB: 14.1 (g/dl) O2 Consumption: Estimated: 282.82 (ml/min) O2 Co nsumption indexed: Estimated:114.5 (ml/min/m) Heart Rate: 59 (bpm) Pressure Samples Time Site Value (mmHg) Purpose Heart Use Rate(bpm) 9:35 LV 94/7,20 Snapshot 56 9:35 AO 93/60(75) Pullback 62 9:35 LV 95/7,16 Pullback 62 Gradients Valve Time Site 1 Site 2 Mean SEP/DFP Peak To Heart Use (mmHg) (sec/min) Peak Rate (mmHg) (bpm) Aortic 9:35 LV AO 5 6 2 62 95/7,16 93/60(75) Calculations Valve P-P Mean Valve Index Valve Source Name Gradient Area Flow (cm2) Aortic 2 5 2 5 Snapshots Pre Cath Intra NCS Post Cath Vital Signs Time Heart Resp SPO2 etCO2 NIBP Rhythm Pain Sedation Rate (ipm) (%) (mmHg) (mmHg) Status Level (bpm) 9:10:58 60 17 99 30.9 121/73(92) NSR 0 (11) 10(A) , No pain 9:15:20 58 13 97 13.5 110/68(79) NSR 0 (11) 10(A) , No pain 9:19:44 57 12 97 15.8 97/64(78) NSR 0 (11) 10(A) , No pain 9:24:04 57 10 96 33.9 104/62(74) NSR 0 (11) 10(A) , No pain 9:28:24 55 13 95 36.2 110/72(89) NSR 0 (11) 9(A) , No pain 9:32:44 55 8 95 20.3 114/66(87) NSR 0 (11) 9(A) , No pain 9:37:04 56 8 96 21 113/68(84) NSR 0 (11) 9(A) , No pain 9:41:33 59 9 96 20.3 119/60(91) NSR 0 (11) 9(A) , No pain 9:45:59 60 16 98 33.2 125/72(88) NSR 0 (11) 9(A) , No pain Medications Time Medication Route Dose Verified Delivered Reason Notes Effe ctiveness by by 9:12:31 0.9% NaCl I.V. 100 Arvin Marika used for ml/hr Phil Casey knobber 9:12:37 Oxygen etCO2 2 Arvin Marika used for Nasal l/min Phil Casey procedure cannula RN 9:12:43 Lidocaine 2% added 20ml Arvin Arvin for local to vial Phil Villarreal MD anesthetic field 9:12:46 Heparin Flush added 2 Arvin Arvin used for Bag to bags Phil Villarreal MD procedure (1000units/500ml field NS) 9:19:42 Versed I.V. 2 mg Arvin Marika for Phil Casey sedation RN 9:19:47 Fentanyl I.V. 50 Arvin Marika for mcg Phil Casey sedation RN 9:24:23 Fentanyl I.V. 50 Arvin Marika for mcg Phil Casey sedation inpatient auditor Log Time Note 8:52:44 Informed consent obtained and on chart 8:56:18 Procedure Status Elective Heart Cath (OP). 8:56:21 Time tracking: Regular hours (M-F 7:00 - 5:00) 8:57:06 Lab Result : Hemoglobin 14.1 g/dl 8:57:06 Lab Result : Hematocrit 40.3 % 8:57:06 Lab Result : eGFR NONAFRICAN 90 ml/min 8:57:06 Lab Result : BUN 11 mg/dl 8:57:06 Lab Result : Creatinine 0.8 mg/dl 8:57:17 Arrival Date: 07/29/2019 12:00:00 AM 8:57:35 Patient Height : 70.87 inches 8:57:40 Patient Weight : 291.01 lbs 8:59:31 Marika Casey RN sent for patient. Start room use. 8:59:39 Plan of Care:Hemodynamics will remain stable., Cardiac rhythm will remain stable., Comfort level will be maintained., Respiratory function will remain adequate., Patient/ family verbilizes understanding of procedure., Procedure tolerated without complication., Recovers from procedure without complications.. 8:59:56 Patient allergic to Other allergyNKDA 9:00:06 Lab results completed and on chart. 9:00:35 Stress Test: yes; abnormal INFERIOR 9:02:17 Patient received from Pre/Post Procedure Room to CCL 1 Alert and oriented. Tansferred to table in Supine position. 9:02:19 Warm blankets applied, and anahy hugger turned on for patient comfort. 9:02:20 Correct patient and procedure confirmed by team. 9:02:21 ECG and BP/O2 sat monitors applied to patient. 9:09:30 Vital chart was started 9:09:31 Baseline sample Acquired. 9:09:39 Rhythm: sinus rhythm 9:09:41 Full Disclosure recording started 9:09:42 9:09:47 H&P Date Dictated: 07/29/2019 H&P Addendum completed by physician on day of procedure. (MUST COMPLETE FOR ALL OUTPATIENTS), New H&P dictated by physician.. 9:09:56 Pre-procedure instructions explained to patient. 9:09:57 Pre-op teaching completed and patient verbalized understanding. 9:10:00 Family unavailable. 9:10:04 Patient NPO since Midnight. 9:10:11 Is the patient allergic to Iodine/contrast media? No. 9:10:14 Was the patient premedicated? Yes 9:10:18 Is patient on blood thinner?Yes 9:10:22 ACC The patient was administered the following blood thiners within the last 24 hours: ACCPlavix 9:10:26 Patient diabetic? No. 9:10:29 ----Pre-sedation anethsthesia assessment.---- 9:10:33 Previous problem with sedation/anesthesia? No ? 9:10:35 Snore? Yes 9:10:41 Sleep apnea? No 9:10:46 Deviated septum? Unknown 9:10:49 Opens mouth fully? Yes 9:10:51 Sticks out tongue? Yes 9:10:56 Airway obstruction? No ? 9:11:11 Dentures? No ? 9:11:16 Pre procedure: right dorsailis pedis pulse 2+ Normal; easily identifiable; not easily obliterated 9:11:25 IV patent on arrival in left hand with 0.9% NaCl at [facility]. 9:11:30 Risk of Mortality: 0.1 9:11:33 Risk of blood transfusion: 0.1 9:11:36 Risk of CONSUELO: 0.1 9:11:42 Right groin area was prepped with chlora-prep and draped in sterile fashion 9:11:45 Alarms reviewed by R. N. 9:11:46 Sharps counted by scrub and verified by R.N. 9:11:51 Use device set Femoral Dx 9:11:52 ACIST Syringe (75346) opened to sterile field. 9:11:53 Bag Decanter (2002S) opened to sterile field. 9:11:54 Medline Cath Pack ([id number]) opened to sterile field. 9:11:55 ACIST Hand Control (60253) opened to sterile field. 9:11:56 ACIST Manifold (26324) opened to sterile field. 9:11:57 DIAGNOSTIC Multipack 5Fr catheter set (BU6784) opened to sterile field. 9:11:58 Tegaderm 4 x 4 (1626W) opened to sterile field. 9:11:59 SHEATH 5FR [place] (KQQ061) opened to sterile field. 9:12:00 EMERALD Guide Wire (660-367) opened to sterile field. 9:12:31 0.9% NaCl 100 ml/hr I.V. was administered by Marika Casey RN; used for procedure; Verbal order read back and verified. 9:12:37 Oxygen 2 l/min etCO2 Nasal cannula was administered by Marika Casey RN; used for procedure; Verbal order read back and verified. 9:12:43 Lidocaine 2% 20ml vial added to field was administered by Arvin Villarreal MD; for local anesthetic; Verbal order read back and verified. 9:12:46 Heparin Flush Bag (1000units/500ml NS) 2 bags added to field was administered by Arvin Villarreal MD; used for procedure; Verbal order read back and verified. 9:18:19 Physician arrived 9:18:20 --------ALL STOP TIME OUT------ 9:18:20 Final Timeout: patient, procedure, and site verified with staff and physician. All members of the team are in agreement. 9:18:24 Right groin site verified by team. 9:18:30 Fire Safety Assessment: A--An alcohol-based skin anteseptic being used preoperatively., C--Open oxygen or nitrous oxide is being used., D--An ESU, laser, or fiber-optic light is being used. 9:18:34 Physical assessment completed. ASA score P 2 - A patient with mild systemic disease as per Arvin Villarreal MD. 9:18:40 1) 90+ Normal kidney functon but urine findings or structural abnormalities or genetic trait point to kidney disease. 9:18:46 Maximum allowable contrast dose (3.7 X eGFR X 0.75)250 ml. 9:18:54 Sedation plan: IV Moderate Sedation Medication:Versed, Fentanyl 9:19:33 Zero performed for pressure channel P1 9:19:42 Versed 2 mg I.V. was administered by Marika Casey RN; for sedation; Verbal order read back and verified. 9:19:47 Fentanyl 50 mcg I.V. was administered by Marika Casey RN; for sedation; Verbal order read back and verified. 9:19:54 Zero performed for pressure channel P1 9:20:24 Zero performed for pressure channel P1 9:20:48 Zero performed for pressure channel P1 9:21:10 Zero performed for pressure channel P1 9:21:32 Zero performed for pressure channel P1 9:23:31 Procedure started. 9:23:37 Local anesthetic to right femoral artery with Lidocaine 2% by Arvin Villarreal MD.INITIAL ACCESS ONLY 9:24:21 A 5 Fr sheath was inserted into the Right Femoral artery 9:24:23 Fentanyl 50 mcg I.V. was administered by Marika Casey RN; for sedation; Verbal order read back and verified. 9:26:17 A MULTIPACK JL 4.0 5Fr catheter was advanced over the wire and used for Left Coronary Angiography. 9:26:44 Injector settings: Ml/sec: 3, Volume: 6, 9:27:19 LCA angiography performed. 9:29:17 Catheter removed. 9:29:29 A MULTIPACK 3DRC 5Fr catheter was advanced over the wire and used for Right Coronary Angiography. 9:30:40 RCA angiography performed. 9:32:27 Injector settings: Ml/sec: 3, Volume: 6, 9:33:38 Catheter removed. 9:33:46 A MULTIPACK Pigtail 5 Fr catheter was advanced over the wire and used for LV Angiography. 9:34:03 LV gram done using SAENZ 9:34:08 Injector settings: Ml/sec: 5, Volume: 15, 9:35:14 LV hemodynamics recorded. 9:35:33 EF : 50 % 9:38:05 Catheter removed. 9:42:40 EXOSEAL 5Fr (EX500) opened to sterile field. 9:42:54 Sheath removed intact; hemostasis achieved with Exoseal to the Right Femoral artery. 9:43:03 Contrast amount:Isovue 300 80ml. 9:43:15 Fluoroscopy time 01.70 minutes. 9:43:21 Flurop Dose total: 990 9:43:22 Fluoroscopy dose: 990 mGy 9:43:41 Dose Area Product 47067 mGy/cm. 9:43:43 Procedure ended.(Physican Out) 9:43:47 Maximum allowable dose exceeded? No. 9:43:48 Sharps counted by scrub and verified by R.N. 9:43:50 Insertion/operative site no bleeding no hematoma. 9:43:55 Post-op/insertion site Right Femoral artery dressed using a 4 x 4 and Tegaderm. 9:44:01 Post right femoral artery:stable 9:44:08 Post-procedure physical assessment completed. ASA score P 2 - A patient with mild systemic disease as per Arvin Villarreal MD. 9:44:13 Post procedure rhythm: unchanged. 9:44:18 Estimated blood loss: 5 ml 9:44:20 Post procedure instruction explained to patient.Patient verbalizes understanding. 9:44:20 Patient needs reinforcement of post procedure teaching. 9:45:16 Procedure type changed to Cath procedure, Diagnostic procedure, LHC, [facility] w/Coronaries, Sedation Charges, Moderate Sedation up to 30 minutes 9:45:22 Procedure and supply charges have been captured, reviewed, submitted and are correct. 9:46:04 Procedure Complication : No complications 9:46:10 Vital chart was stopped 9:46:19 [facility] Findings: MVD- MD will discuss options w/ pt 9:46:22 Operative report dictated upon procedure completion. 9:46:23 See physician's report for complete and final results. 9:46:28 Report given to Pre/Post Procedure Room. 9:46:51 Patient transfered to Pre/Post Procedure Room with Stretcher. 9:48:47 Procedure ended. 9:48:47 Full Disclosure recording stopped 9:48:52 End room use (Document Last) Device Usage Item Name Manufacture Quantity Catalog Hospital Part Current Minimal L ot# / Number Charge Number Stock Stock Serial# Code ACIST Acist 1 20021 356758 545521 673770 20 Syringe Medical (45938) Systems Inc Bag Microtek 1 2001S 761873 95008 880747 5 Decanter Medical Inc. () Medline Medline 1 [id number] 940773 83959 352764 5 Cath Pack ([id number]) ACIST Hand Acist 1 27377 176766 013641 883984 5 Control Medical (80107) Systems Inc ACIST Acist 1 05298 299150 163720 016897 5 Manifold Medical (44601) Systems Inc DIAGNOSTIC Cardinal 1 [id number] 939031 34138 529678 30 SLEDVision 5Fr catheter set (HV3251) Tegaderm 4 3M 1 1626W 790653 268263 692194 5 x 4 (1626W) SHEATH 5FR Terumo 1 [id number] 226484 638912 667351 5 [place]bridge (DZK099) EMERALD Cardinal 1 502-872 516549 102406 217895 5 Guide Wire [facility] (758-392) MULTIPACK Cardinal 1 103198 5 JL 4.0 5Fr Health catheter MULTIPACK Cardinal 1 597705 5 3DRC 5Fr [facility] catheter MULTIPACK Cardinal 1 [id number] 5 Pigtail 5 Health Fr catheter EXOSEAL 5Fr Cardinal 1 EX500 171649 454183 654728 10 (EX500) Health Signature Audit Sanderson Stage Time Signature Unsigned Intra-Procedure 07/29/2019 Christina 9:49:12 AM Lisa RT(R) (CV) Intra-Procedure 07/29/2019 Marika Casey 9:49:38 AM RN Intra-Procedure 07/29/2019 Arvin Villarreal MD 9:50:38 AM [id number] [place] [address]
[2019-07-29] MEDS ORDERED: TOPROL XL100 MG PO (06:23)
[2019-07-29] MEDS ORDERED: ISOSORBIDE MONO60 M1 PO (06:24)
[2019-07-29] MEDS ORDERED: EC-NAPROSYN500 MG PO (06:25)
[2019-07-29] MEDS ORDERED: ELAVIL10 MG PO (06:25)
[2019-07-29] MEDS ORDERED: CYCLOBENZAPRINE10 MG PO (06:26)
[2019-07-29] MEDS ORDERED: NITROQUICK0.4 MG SL (06:26)
[2019-07-29 07:25] VITALS: BP 108/67; Ht 180.3 cm; Wt 131.8 kg
[2019-07-29 07:39] LABS: BASOPHILS 0.4 % (0-2); EOSINOPHILS 1.8 % (0-7); HEMATOCRIT 40.3 % (42.0-54.0); HEMOGLOBIN 14.1 g/dL (13.5-17.5); IMMATURE GRANULOCYTES 0.2 % (0-5); LYMPHOCYTES 35.2 % (15-50); MCV 91.4 fL (80.0-100.0); MEAN PLATELET VOLUME 8.5 fL (7.4-10.4); MONOCYTES 12.4 % (2-11); PLATELET COUNT 190 10x3/uL (130-400); RBC 4.41 10x6/uL (4.20-6.10); RDW 12.9 % (11.5-14.5); WBC 5.1 10x3/uL (4.8-10.8)
[2019-07-29 08:03] LABS: ALT (SGPT) 46 U/L (10-68); CALC OSMOLALITY 269 mosm/kg (275-300); CALCIUM 8.8 mg/dL (8.5-10.1); CHLORIDE - SERUM 102 mmol/L (98-107); CHOL - HDL RATIO 5.9 ratio (2.3-4.9); CHOLESTEROL, TOTAL 184 mg/dL (0-200); CREATININE - SERUM 0.8 mg/dL (0.6-1.3); GLUCOSE 115 mg/dL (74-106); HDL CHOLESTEROL 31 mg/dL (32-96); LDL CHOLESTEROL 136 mg/dL (0-100); LDL-HDL RATIO 4.4 ratio (1.5-3.5); POTASSIUM - SERUM 4.4 mmol/L (3.5-5.1); SODIUM 135 mmol/L (136-145); TRIGLYCERIDE 88 mg/dL (30-200); UREA NITROGEN 11 mg/dL (7-18); eGFR NON AFRICAN AMERICAN > 90 mL/min (90-120)
--- NOTE | 2019-07-29 10:00 | NUR ---
PT REC'D TO ROOM 10 VIA STRETCHER FROM SLD TEACHER. MONITORS ESTAB. PT AWAKE AND ORIENTED. SEE ELECTRICITY TRADING ANALYST, ALARMS ON AND C/L IN REACH.
--- NOTE | 2019-07-29 10:15 | NUR ---
R GROIN SOFT, NO S/S BLEEDING OR HEMATOMA. R LEG/FOOT WARM WITH PALP PULSES. PT RESTING QUIETLY, TOLERATING SIPS OF WATER. ALARMS ON AND C/L IN REACH.
--- NOTE | 2019-07-29 10:45 | NUR ---
PT RESCHEDULED TO COME BACK TOMORROW FOR PROCEDURE WITH DR. CASILLAS. R GROIN SITE C/D/I, NO S/S BLEEDING OR HEMATOMA.
--- NOTE | 2019-07-29 11:00 | NUR ---
R GROIN SITE SOFT, NO S/S BLEEDING OR HEMATOMA. HOB ELEVATED. SANDWICH TRAY AND SPRITE PROVIDED. C/L IN REACH.
--- NOTE | 2019-07-29 11:30 | NUR ---
VSS. R GROIN SITE C/D/I. NO N/V. PT RESTING QUIETLY, DENIES NEEDS.
--- NOTE | 2019-07-29 12:15 | NUR ---
R GROIN SITE SOFT, C/D/I. PIV D/C'D INTACT AND DSG APPLIED. PT ALLOWED UP TO GET DRESSED.
--- NOTE | 2019-07-29 12:30 | NUR ---
ALL D/C INSTRUCTIONS REVIEWED INCLUDING RESTRICTIONS AND INSTRUCTIONS FOR PROCEDURE TOMORROW. PT D/C'D VIA WC TO [employer]. PT HAS ALL BELONGINGS AND PAPER WORK.
== END 2019-07-29 12:30 | disposition home or self-care (01) ==
LOC: D.CATH 05:43
PROVIDERS: ATTEND Internal Medicine Cardiovascular Disease
DX: I25.118 Atherosclerotic heart disease of native coronary artery with other forms of angina pectoris (principal); I10 Essential (primary) hypertension; E78.5 Hyperlipidemia, unspecified

== ENCOUNTER 2019-07-30 08:05 | Outpatient (CLI) | payer OTHER ==
[~2019-07-30] VITALS: Ht 180.3 cm; Wt 131.8 kg
[2019-07-30] VITALS (9 sets, daily range): BP systolic 97–122; BP diastolic 63–81; Ht 180.3 cm; Wt 131.8 kg
--- NOTE | ~2019-07-30 | HEMODYNAMI ---
PATIENT:ARVIN RONDON MEDICAL RECORD: [id number] : 63 LOCATION:D.CAT ADMISSION DATE: 07/30/19 Generatedon:07/30/201912:18 Patient name: ARVIN RONDON Patient #: [id number] SSN: [id number] : 1965 Date of study: 07/30/2019 Page: Of Hemodynamic Procedure Report Patient Data Patient Demographics Procedure consent was obtained First Name: ARVIN Gender: Male Last Name: ALCON : 1965 Middle Initial: ALVINO Age: 53 year(s) Patient #: [id number] Race: SSN: [id number] Additional ID: [id number] Contact details Address: [place] [address] State: [place] City: [place] Zip code: [address] Past Medical History Performed procedures and imaging results Date Procedure Procedure Results Comments PCI History of disease Date Diagnosis Comments CAD Allergies Allergen Reaction Date Comments Reported Other allergy 07/29/2019 [facility] Admission Admission Data Admission Date: 07/30/2019 Admission Time: 8:05 Arrival Date: 07/30/2019 Arrival Time: 0:00 Height (in.): 70.87 BSA: 2.47 (m2) Height (cm.): 180 BMI: 40.74 (kg/m2) Weight (lbs.): 291.01 Weight (kg.): 132 Lab Results Lab Result Date: 07/30/2019 Lab Result Time: 0:00 Biochemistry Name Units Result Min Max BUN mg/dl 12 --(-*--)-- 7 18 Creatinine mg/dl 0.8 --(-*--)-- 0.6 1.3 eGFR ml/min 90 --(*---)-- 90 120 NONAFRICAN CBC Name Units Result Min Max Hematocrit % 42.1 --(*---)-- 42 54 Hemoglobin g/dl 14.8 --(-*--)-- 13.5 17.5 Procedure Procedure Types Cath Procedure Diagnostic Procedure Sedation Charges Moderate Sedation up to 30 minutes PCI Procedure Coronary Atherectomy Atherectomy w/PTCA Coronary Initial Hemochron ACT Test Procedure Description Procedure Date Procedure Date: 07/30/2019 Procedure Start Time: 11:31 Procedure End Time: 12:14 Procedure Staff Name Function Marika Casey RN Nurse Teri Jackson RT Scrub Arvin Villarreal MD Performing Physician Christina Gonzalez RT Broadcaster [employer] RT Monitor Procedure Data Cath Procedure Fluoroscopy Diagnostic fluoroscopy Total fluoroscopy Time: time: 12.8 min 12.8 min Diagnostic fluoroscopy Total fluoroscopy dose: dose: 1912 mGy 1912 mGy Contrast Material Contrast Material Type Amount (ml) Isovue 300 107 Entry Location Entry Primary Successful Side Size Upsize Upsize Entry Closure Succes sful Closure Location (Fr) 1 (Fr) 2 (Fr) Remarks Device Remarks Femoral Right 6 Fr Exoseal artery Short Estimated blood loss: 10 ml Procedure Complications No complications Procedure Medications Medication Administration Route Dosage 0.9% NaCl I.V. 100 ml/hr Oxygen etCO2 Nasal cannula 2 l/min Lidocaine 2% added to field 20 Heparin Flush Bag added to field 2 bags (1000units/500ml NS) Versed I.V. 2 mg Fentanyl I.V. 50 mcg Versed I.V. 2 mg Fentanyl I.V. 50 mcg Heparin Bolus I.V. 82907 units Versed I.V. 2 mg Nitroglycerin IC/IA I.C. 50 mcg Nitroglycerin IC/IA I.C. 50 mcg Hemodynamics Rest BSA: 2.47 (m2) O2 Consumption: Estimated: 273.94 (ml/min) O2 Consumption indexed : Estimated:110.91 (ml/min/m) Heart Rate: 49 (bpm) Snapshots Pre Cath Intra NCS Post Cath Vital Signs Time Heart Resp SPO2 etCO2 NIBP Rhythm Pain Sedation Rate (ipm) (%) (mmHg) (mmHg) Status Level (bpm) 11:19:39 60 21 97 27 118/73(90) NSR 0 (11) 10(A) , No pain 11:23:46 60 26 99 28.4 119/73(87) NSR 0 (11) 10(A) , No pain 11:28:00 58 15 97 27.7 105/61(77) SB 0 (11) 10(A) , No pain 11:32:06 59 13 99 15.7 101/65(78) SB 0 (11) 10(A) , No pain 11:36:10 57 16 97 3.7 109/59(80) SB 0 (11) 10(A) , No pain 11:40:20 59 10 97 33.7 102/59(74) SB 0 (11) 9(A) , No pain 11:44:27 58 10 98 1.4 97/59(74) SB 0 (11) 9(A) , No pain 11:48:31 57 10 97 15.7 105/66(83) SB 0 (11) 9(A) , No pain 11:52:29 61 12 97 28.4 105/72(88) NSR 0 (11) 9(A) , No pain 11:56:30 64 12 98 35.9 120/79(97) NSR 0 (11) 10(A) , No pain 12:01:17 60 13 96 9.7 111/75(91) NSR 0 (11) 9(A) , No pain 12:06:06 60 13 97 21.7 114/73(88) NSR 0 (11) 9(A) , No pain 12:10:14 59 14 97 8.2 114/72(91) NSR 0 (11) 10(A) , No pain 12:14:20 59 13 99 26.9 118/77(92) NSR 0 (11) 10(A) , No pain Medications Time Medication Route Dose Verified Delivered Reason Notes Effectiveness by by 11:16:48 0.9% NaCl I.V. 100 Arvin Marika used for ml/hr Phil Casey program manager environmental planning 11:16:54 Oxygen etCO2 2 Arvin Marika used for Nasal l/min Phil Casey procedure cannula RN 11:17:00 Lidocaine 2% added 20ml Arvin Arvin for local to vial Phil Villarreal MD anesthetic field 11:17:03 Heparin Flush added 2 Arvin Arvin used for Bag to bags Phil Villarreal MD procedure (1000units/500ml field NS) 11:29:46 Versed I.V. 2 mg Arvin Marika for sedation Phil Casey RN 11:29:53 Fentanyl I.V. 50 Arvin Marika for sedation mcg Phil Casey RN 11:34:49 Versed I.V. 2 mg Arvin Marika for sedation Phil Casey RN 11:34:53 Fentanyl I.V. 50 Arvin Marika for sedation mcg Phil Casey RN 11:34:56 [place]. [address]282 Arvin Marika for verif ied units Phil Casey anticoagulation with Dr. MAR Villarreal 11:56:37 Versed I.V. 2 mg Arvin Marika for sedation Phil Casey RN 11:56:41 Nitroglycerin I.C. 50 Arvin Marika for IC/IA mcg Phil Casey vasodilation RN 12:05:16 Nitroglycerin I.C. 50 Arvin Marika for IC/IA mcg Phil Casey vasodilation control clerk head Log Time Note 10:49:16 Informed consent obtained and on chart 10:50:42 Patient Weight : 291.01 lbs 11:04:27 Patient Height : 70.87 inches 11:04:32 Arrival Date: 07/30/2019 12:00:00 AM 11:07:31 Procedure Status Elective Heart Cath (OP), PCI. 11:07:33 Time tracking: Regular hours (M-F 7:00 - 5:00) 11:07:35 Plan of Care:Hemodynamics will remain stable., Cardiac rhythm will remain stable., Comfort level will be maintained., Respiratory function will remain adequate., Patient/ family verbilizes understanding of procedure., Procedure tolerated without complication., Recovers from procedure without complications.. 11:08:10 Marika Casey RN sent for patient. Start room use. 11:08:18 H&P Date Dictated: 07/30/2019 Within 30 days and on chart., H&P Addendum completed by physician on day of procedure. (MUST COMPLETE FOR ALL OUTPATIENTS). 11:13:27 Patient received from Pre/Post Procedure Room to CCL 2 Alert and oriented. Tansferred to table in Supine position. 11:13:30 Warm blankets applied, and anahy hugger turned on for patient comfort. 11:13:31 Correct patient and procedure confirmed by team. 11:13:32 ECG and BP/O2 sat monitors applied to patient. 11:15:23 Rhythm: sinus bradycardia 11:16:17 Full Disclosure recording started 11:16:18 Pre-procedure instructions explained to patient. 11:16:18 Pre-op teaching completed and patient verbalized understanding. 11:16:21 Family AVAILABLE WITH PHONE CALL 11:16:36 Patient NPO since Midnight. 11:16:48 0.9% NaCl 100 ml/hr I.V. was administered by Marika Casey RN; used for procedure; Verbal order read back and verified. 11:16:48 Is the patient allergic to Iodine/contrast media? No. 11:16:48 Is patient on blood thinner?Yes 11:16:51 ACC The patient was administered the following blood thiners within the last 24 hours: ACCPlavix 11:16:54 Oxygen 2 l/min etCO2 Nasal cannula was administered by Marika Casey RN; used for procedure; Verbal order read back and verified. 11:17:00 Lidocaine 2% 20ml vial added to field was administered by Arvin Villarreal MD; for local anesthetic; Verbal order read back and verified. 11:17:03 Heparin Flush Bag (1000units/500ml NS) 2 bags added to field was administered by Arvin Villarreal MD; used for procedure; Verbal order read back and verified. 11:17:30 Patient diabetic? No. 11:17:34 Previous problem with sedation/anesthesia? No ? 11:17:35 Snore? Yes 11:17:36 Sleep apnea? No 11:17:37 Deviated septum? No 11:17:38 Opens mouth fully? Yes 11:17:39 Sticks out tongue? Yes 11:17:41 Airway obstruction? No ? 11:17:43 Dentures? No ? 11:17:48 Patient pain scale 0/10 ?. 11:18:41 Vital chart was started 11:19:07 Lab Result : BUN 12 mg/dl 11:19:07 Lab Result : Creatinine 0.8 mg/dl 11:19:07 Lab Result : eGFR NONAFRICAN 90 ml/min 11:19:07 Lab Result : Hemoglobin 14.8 g/dl 11:19:07 Lab Result : Hematocrit 42.1 % 11:19:14 Lab results completed and on chart. 11:20:35 Stress Test: yes; abnormal INFERIOR-PCI 11:20:39 Right groin area was prepped with chlora-prep and draped in sterile fashion 11:20:40 Alarms reviewed by R. N. 11:20:41 Sharps counted by scrub and verified by R.N. ::15 --------ALL STOP TIME OUT------ ::15 Final Timeout: patient, procedure, and site verified with staff and physician. All members of the team are in agreement. 11:28:16 Right groin site verified by team. 11:28:19 Fire Safety Assessment: A--An alcohol-based skin anteseptic being used preoperatively., C--Open oxygen or nitrous oxide is being used., D--An ESU, laser, or fiber-optic light is being used. 11:28:23 Physical assessment completed. ASA score P 2 - A patient with mild systemic disease as per Arvin Villarreal MD. 11:28:25 1) 90+ Normal kidney functon but urine findings or structural abnormalities or genetic trait point to kidney disease. 11:28:29 Maximum allowable contrast dose (3.7 X eGFR X 0.75)250 ml. 11:28:31 Sedation plan: IV Moderate Sedation Medication:Versed, Fentanyl 11:28:50 Use device set CATH PACK 11:28:51 ACIST Syringe (96971) opened to sterile field. 11:28:52 ACIST Hand Control (00930) opened to sterile field. 11:28:52 ACIST Manifold (63026) opened to sterile field. 11:28:52 Medline Cath Pack ([id number]) opened to sterile field. 11:28:52 Bag Decanter () opened to sterile field. 11:28:53 NICOLE Guide Wire (380-302) opened to sterile field. 11:29:46 Versed 2 mg I.V. was administered by Marika Casey RN; for sedation; Verbal order read back and verified. 11:29:53 Fentanyl 50 mcg I.V. was administered by Marika Casey RN; for sedation; Verbal order read back and verified. 11:30:21 SHEATH 6FR Bel[place] (RPF679) opened to sterile field. 11:30:21 INFLATOR Merit BasixCompak (MO8249) opened to sterile field. 11:30:22 TUBING High Pressure Extension Tubing (Phil) ([id number]) opened to sterile field. 11:31:03 GUIDE 6FR JR 4.0 SH catheter ([id number]) opened to sterile field. 11:31:09 Procedure started. 11:31:39 Local anesthetic to right femoral artery with Lidocaine 2% by Arvin Villarreal MD.INITIAL ACCESS ONLY 11:33:13 Zero performed for pressure channel P1 11:33:17 Zero performed for pressure channel P1 11:33:20 Zero performed for pressure channel P1 11:33:23 Zero performed for pressure channel P1 11:33:43 A 6 Fr Short sheath was inserted into the Right Femoral artery 11:34:32 Pre PCI Site: [place] RCA has 80-90% stenosis. 11:34:40 6 Fr JR 4 SH guide catheter was inserted over the wire 11:34:49 Versed 2 mg I.V. was administered by Marika Casey RN; for sedation; Verbal order read back and verified. 11:34:53 Fentanyl 50 mcg I.V. was administered by Marika Casey RN; for sedation; Verbal order read back and verified. 11:34:56 Heparin Bolus 70650 units I.V. was administered by Marika Casey RN; for anticoagulation; verified with Dr. Villarreal Verbal order read back and verified. 11:35:34 BMW 300cm Straight [place] 2 wire (4854327) opened to sterile field. 11:36:03 BMW 300 wire advanced. 11:37:04 Wire advanced across lesion. 11:38:07 LASER ELCA 0.9 Rx atherectomy catheter (926897) opened to sterile field. 11:41:17 Laser pass to RCA with Fluence of 45 and Rate of 45. 11:46:32 Laser pass to RCA with Fluence of 60 and Rate of 60. 11:47:00 Baseline sample Acquired. 11:50:56 Laser pass to RCA with Fluence of 80 and Rate of 80. 11:56:31 Laser catheter removed. 11:56:33 Laser total pulses delivered: 08773 11:56:36 Laser total treatment time: 3 minutes 11 seconds 11:56:37 Versed 2 mg I.V. was administered by Marika Casey RN; for sedation; Verbal order read back and verified. 11:56:41 Nitroglycerin IC/IA 50 mcg I.C. was administered by Marika Casey RN; for vasodilation; Verbal order read back and verified. 11:59:56 Inflate balloon Inflation number: 1 A EMERGE OTW 2.0 x 15 balloon ([id number]) was prepped and advanced across the Dist RCA , then inflated to 12 ALEX for 0:00 (min:sec) . 12:00:23 Inflation number: 1 The EMERGE OTW 2.0 x 15 balloon ([id number]) was reinflated across the Prox RCA , to 16 ALEX for 0:00 (min:sec) . 12:01:39 Balloon removed over the wire. 12:04:31 Inflate balloon Inflation number: 2 A EMERGE OTW 2.5 x 15 balloon ([id number]) was prepped and advanced across the Prox RCA , then inflated to 16 ALEX for 0:00 (min:sec) . 12:05:10 Balloon removed over the wire. 12:05:16 Nitroglycerin IC/IA 50 mcg I.C. was administered by Marika Casey RN; for vasodilation; Verbal order read back and verified. 12:08:08 Wire removed. 12:08:08 Guide catheter removed. 12:08:12 EXOSEAL 6Fr (EX600) opened to sterile field. 12:09:25 Sheath removed intact; hemostasis achieved with Exoseal to the Right Femoral artery. 12:10:03 Procedure ended.(Physican Out) 12:10:42 Fluoroscopy time 12.80 minutes. 12:10:46 Flurop Dose total: 1912 12:10:46 Fluoroscopy dose: 1912 mGy 12:10:55 Dose Area Product 45322 mGy/cm. 12:10:58 Contrast amount:Isovue 300 107ml. 12:11:02 Maximum allowable dose exceeded? No. 12:11:03 Sharps counted by scrub and verified by R.N. 12:11:06 Post-op/insertion site Right Femoral artery dressed using a 4 x 4 and Tegaderm. 12:11:11 Post-procedure physical assessment completed. ASA score P 2 - A patient with mild systemic disease as per Arvin Villarreal MD. 12:11:14 Post procedure rhythm: sinus bradycardia 12:11:19 Estimated blood loss: 10 ml 12:11:21 Post procedure instruction explained to patient.Patient verbalizes understanding. 12:11:21 Patient needs reinforcement of post procedure teaching. 12:11:33 Procedure type changed to Cath procedure, Diagnostic procedure, Sedation Charges, Moderate Sedation up to 30 minutes, PCI procedure, Coronary Atherectomy, Atherectomy w/PTCA Coronary Initial, Hemochron ACT Test 12:12:39 Procedure and supply charges have been captured, reviewed, submitted and are correct. 12:12:43 Procedure Complication : No complications 12:13:13 [facility] Findings: MVD- PCI performed (see procedure note) 12:13:14 Operative report dictated upon procedure completion. 12:13:15 See physician's report for complete and final results. 12:13:17 Report given to Pre/Post Procedure Room. 12:13:19 Patient transfered to Pre/Post Procedure Room with Bed. 12:14:47 ACT drawn and resulted at >400- out of range seconds. (normal therapeutic range 180-240 seconds). 12:14:50 Vital chart was stopped 12:14:54 Procedure ended. 12:14:54 Full Disclosure recording stopped 12:15:04 ACC-PCI Only Patient was given prescriptions, or instructed by Arvin Villarreal MD to start/continue the following medications upon discharge: Plavix 12:16:35 End room use (Document Last) 12:17:02 End room use (Document Last) 12:17:37 End room use (Document Last) Intervention Summary Intervention Notes Time ActionType Lesion and Equipment Action# Pressure Duration Attributes Used 11:59:56 Inflate Dist RCA EMERGE OTW 1 12 00:00 balloon 2.0 x 15 balloon ([id number]) 12:00:23 Reinflate Prox RCA EMERGE OTW 1 16 00:00 balloon 2.0 x 15 balloon ([id number]) 12:04:31 Inflate Prox RCA EMERGE OTW 2 16 00:00 balloon 2.5 x 15 balloon ([id number]) Device Usage Item Name Manufacture Quantity Catalog Number Hospital Part Current Min imal Lot# / Charge Number Stock Stock Serial# Code ACIST Acist 1 97923 611206 521021 009227 20 Syringe Medical (39684) Systems Inc ACIST Hand Acist 1 06722 481397 181060 629257 5 Control Medical (83957) Systems Inc ACIST Acist 1 28566 261615 259409 818980 5 Manifold Medical (36362) Systems Inc Medline Cath Medline 1 [id number] 346896 23592 096403 5 Pack ([id number]) Bag Decanter Microtek 1 176410 92743 112603 5 (2002S) Medical Inc. EMERALD Cardinal 1 502455 156148 460990 111867 5 Guide Wire [facility] (502455) SHEATH 6FR Terumo 1 WNZ611 308265 338342 418364 40 Belen (HWC812) INFLATOR Merit 1 IX2396 656863 187182 916719 15 Merit Medical BasixCompak (VJ4397) TUBING High Merit 1 [id number] 568518 47333 654735 10 Pressure Medical Extension Tubing (Villarreal) (JQ5348I) GUIDE 6FR JR Medtronic 1 [id number] 085669 28456 291030 1 4.0 SH catheter ([id number]) BMW 300cm [place] 1 8265554 867391 433023 949971 5 Straight Vascular [place] 2 wire (6675466) LASER ELCA Erika 1 110-004 153887 976140 087724 5 0.9 Rx [employer] atherectomy (859825) catheter (785354) EMERGE OTW [place] 1 [id number] 335115 653238 201550 5 [id number] 2.0 x 15 Scientific balloon ([id number]) EMERGE OTW [place] 1 [id number] 331637 970913 094186 5 [id number] 2.5 x 15 Scientific balloon ([id number]) EXOSEAL 6Fr Cardinal 1 EX600 014280 749233 521575 10 (EX600) Health Signature Audit [place] Stage Time Signature Unsigned Intra-Procedure 07/30/2019 Rossi Campuzano 12:17:02 PM RT(R) Intra-Procedure 07/30/2019 Markia Casey 12:17:37 PM RN Intra-Procedure 07/30/2019 Arvin Villarreal MD 12:18:17 PM Signatures Nurse : Marika Casey RN Signature : Date : Time : Performing Physician : Signature : Arvin Villarreal MD Date : Time : Monitor : Rossi Campuzano Signature : RT Date : Time : [place] [address] [place] [address]
[~2019-07-30 08:05] MED LIST changes: +CYCLOBENZAPRINE10 MG PO; +EC-NAPROSYN500 MG PO; +ELAVIL10 MG PO; +ISOSORBIDE MONO60 M1 PO; +TOPROL XL100 MG PO
[2019-07-30 10:31] LABS: CALC OSMOLALITY 268 mosm/kg (275-300); CALCIUM 8.9 mg/dL (8.5-10.1); CHLORIDE - SERUM 103 mmol/L (98-107); CREATININE - SERUM 0.8 mg/dL (0.6-1.3); GLUCOSE 111 mg/dL (74-106); POTASSIUM - SERUM 4.9 mmol/L (3.5-5.1); SODIUM 134 mmol/L (136-145); UREA NITROGEN 12 mg/dL (7-18); eGFR NON AFRICAN AMERICAN > 90 mL/min (90-120)
[2019-07-30 10:49] LABS: HEMATOCRIT 42.1 % (42.0-54.0); HEMOGLOBIN 14.8 g/dL (13.5-17.5); LYMPHOCYTES 30.5 % (15-50); MCH 31.8 pg (26.0-34.0); MCHC 35.2 g/dL (31.0-37.0); MCV 90.5 fL (80.0-100.0); MEAN PLATELET VOLUME 8.4 fL (7.4-10.4); NEUTROPHILS 57.3 % (40-80); RBC 4.65 10x6/uL (4.20-6.10); WBC 5.4 10x3/uL (4.8-10.8)
[2019-07-30 10:52] LABS: PLATELET COUNT 241 10x3/uL (130-400)
--- NOTE | 2019-07-30 12:25 | NUR ---
PT REC'D TO ROOM 2 VIA STRETCHER FROM ASSOCIATE PROFESSOR OF VIOLIN. MONITORS ESTAB. PT DROWSY, NO S/S OF DISTRESS. SEE SETTER JUICE PACKAGING MACHINES.. ALARMS ON AND C/L IN REACH.
--- NOTE | 2019-07-30 12:40 | NUR ---
R GROIN SITE SOFT, NO S/S BLEEDING OR HEMATOMA. R LEG/FOOT WARM WITH PALP PULSES. PT RESTING QUIETLY, VSS. ALARMS ON AND C/L IN REACH.
--- NOTE | 2019-07-30 13:10 | NUR ---
R GROIN SITE SOFT, C/D/I. PT RESTING QUIETLY, DENIES NEEDS. B/P 97/64 HR 57. R LEG/FOOT WARM WITH PALP PULSES. ALARMS ON AND C/L IN REACH.
--- NOTE | 2019-07-30 13:25 | NUR ---
R GROIN SITE SOFT, NO S/S BLEEDING OR SWELLING. PT TOLERATING SIPS OF WATER, COOPERATIVE WITH LYING FLAT. VSS. C/L IN REACH. ALARMS ON .
--- NOTE | 2019-07-30 13:55 | NUR ---
R GROIN SITE SOFT, C/D/I. R LEG/FOOT WARM WITH PALP PULSES. PT DENIES NEEDS. VSS. ALARMS ON AND C/L IN REACH.
--- NOTE | 2019-07-30 14:25 | NUR ---
PT RESTING QUIETLY, HR 56, B/P 106/74. R GROIN SITE SOFT, NO S/S BLEEDING OR HEMATOMA. ALARMS ON AND C/L IN REACH.
--- NOTE | 2019-07-30 14:55 | NUR ---
R GROIN SOFT, NO S/S OF BLEEDING OR HEMATOMA. PULSES PALP.
--- NOTE | 2019-07-30 15:15 | NUR ---
R GROIN SITE SOFT, C/D/I. HOB ELEVATED AND SANDWICH TRAY PROVIDED. C/L IN REACH.
--- NOTE | 2019-07-30 15:44 | NUR ---
R GROIN SITE SOFT, C/D/I. PULSES PALP. PT ATE ALL OF SANDWICH, NO N/V. PT WATCHING TV, C/L IN REACH.
--- NOTE | 2019-07-30 16:15 | NUR ---
R GROIN SITE SOFT, C/D/I. PIV D/C'D INTACT, DSG APPLIED. PT ALLOWED UP TO GET DRESSED AND GO TO THE BR INDEPENDENTLY.
--- NOTE | 2019-07-30 16:20 | NUR ---
ALL DISCHARGE INSTRUCTIONS REVIEWED WITH PT, INCLUDING RESTRICTIONS, S/S TO WATCH FOR, AND TO CALL OFFICE FRIDAY FOR F/U APPT. PT VERBALIZES UNDERSTANDING OF THESE INSTRUCTIONS.
--- NOTE | 2019-07-30 16:35 | NUR ---
PT D/C'D VIA TO [facility]. PT HAS ALL BELONGINGS AND PAPERWORK.
== END 2019-07-30 16:35 | disposition home or self-care (01) ==
LOC: D.CATH 08:05
PROVIDERS: ATTEND Internal Medicine Cardiovascular Disease
DX: I25.110 Atherosclerotic heart disease of native coronary artery with unstable angina pectoris (principal)

== ENCOUNTER 2019-08-05 15:39 | Emergency (ER) | payer OTHER ==
[~2019-08-05] VITALS: Ht 180.3 cm; Wt 131.8 kg
[2019-08-05 15:51] VITALS: Ht 180.3 cm; Wt 131.8 kg
[2019-08-05] MEDS ORDERED: NORMODYNE / TR200 MG PO (16:12)
[2019-08-05 16:16] LABS: BASOPHILS 0.2 % (0-2); HEMOGLOBIN 13.4 g/dL (13.5-17.5); IMMATURE GRANULOCYTES 0.5 % (0-5); LYMPHOCYTES 35.6 % (15-50); MCH 31.8 pg (26.0-34.0); MCHC 35.3 g/dL (31.0-37.0); MCV 90.3 fL (80.0-100.0); MEAN PLATELET VOLUME 8.3 fL (7.4-10.4); MONOCYTES 13.4 % (2-11); NEUTROPHILS 47.3 % (40-80); RBC 4.21 10x6/uL (4.20-6.10); RDW 12.9 % (11.5-14.5); WBC 5.7 10x3/uL (4.8-10.8)
[2019-08-05 16:17] LABS: PLATELET COUNT 173 10x3/uL (130-400)
[2019-08-05 16:23] LABS: CALC OSMOLALITY 256 mosm/kg (275-300); CALCIUM 8.6 mg/dL (8.5-10.1); CARBON DIOXIDE 23.3 mmol/L (21.0-32.0); CHLORIDE - SERUM 96 mmol/L (98-107); CREATININE - SERUM 0.9 mg/dL (0.6-1.3); GLUCOSE 92 mg/dL (74-106); POTASSIUM - SERUM 3.7 mmol/L (3.5-5.1); SODIUM 129 mmol/L (136-145); UREA NITROGEN 8 mg/dL (7-18); eGFR NON AFRICAN AMERICAN > 90 mL/min (90-120)
[2019-08-05 16:39] LABS: ALBUMIN 3.7 g/dL (3.4-5.0); ALKALINE PHOSPHATASE 71 U/L (30-120); ALT (SGPT) 42 U/L (10-68); BILIRUBIN - TOTAL 0.44 mg/dL (0.2-1.3); CKMB 1.9 U/L (0.0-3.6); CREATINE KINASE 164 UL (21-232); MAGNESIUM - SERUM 1.5 mg/dL (1.8-2.4); PROTEIN - SERUM 6.8 g/dL (6.4-8.2); TROPONIN-I < 0.017 ng/mL (0.000-0.060)
[2019-08-05 17:01] LABS: APTT 31.9 SECONDS (22.8-39.4); INR 1.07 (0.85-1.17); PROTIME 13.8 SECONDS (11.6-15.0)
[2019-08-05] MEDS ORDERED: NAPROSYN500 MG PO (18:04)
[2019-08-05 18:53] VITALS: BP 115/67
== END 2019-08-05 18:55 | disposition home or self-care (01) ==
LOC: D.ER 15:39
PROVIDERS: Family Medicine
DX: R07.89 Other chest pain (principal); I10 Essential (primary) hypertension; K21.9 Gastro-esophageal reflux disease without esophagitis; Z98.61 Coronary angioplasty status; R42 Dizziness and giddiness

== ENCOUNTER 2019-10-02 11:13 | Emergency (ER) | payer OTHER ==
[~2019-10-02] VITALS: Ht 180.3 cm; Wt 131.8 kg
[~2019-10-02 11:13] MED LIST changes: +NAPROSYN500 MG PO; +NORMODYNE / TR200 MG PO
[2019-10-02 11:26] VITALS: Ht 180.3 cm; Wt 131.8 kg
[2019-10-02 12:01] LABS: HEMOGLOBIN 13.9 g/dL (13.5-17.5); LYMPHOCYTES 44.5 % (15-50); MCH 31.9 pg (26.0-34.0); MCHC 35.6 g/dL (31.0-37.0); MCV 89.4 fL (80.0-100.0); MEAN PLATELET VOLUME 7.8 fL (7.4-10.4); NEUTROPHILS 52.2 % (40-80); RBC 4.36 10x6/uL (4.20-6.10); RDW 13.4 % (11.5-14.5); WBC 5.4 10x3/uL (4.8-10.8)
[2019-10-02 12:02] LABS: PLATELET COUNT 210 10x3/uL (130-400)
[2019-10-02 12:10] LABS: APTT 29.6 SECONDS (22.8-39.4); INR 1.05 (0.85-1.17); PROTIME 13.7 SECONDS (11.6-15.0)
[2019-10-02 12:17] LABS: CALC OSMOLALITY 256 mosm/kg (275-300); CALCIUM 8.8 mg/dL (8.5-10.1); CARBON DIOXIDE 23.2 mmol/L (21.0-32.0); CHLORIDE - SERUM 97 mmol/L (98-107); CREATININE - SERUM 0.8 mg/dL (0.6-1.3); GLUCOSE 102 mg/dL (74-106); POTASSIUM - SERUM 4.1 mmol/L (3.5-5.1); SODIUM 129 mmol/L (136-145); UREA NITROGEN 6 mg/dL (7-18); eGFR NON AFRICAN AMERICAN > 90 mL/min (90-120)
[2019-10-02 12:33] LABS: ALBUMIN 3.8 g/dL (3.4-5.0); ALKALINE PHOSPHATASE 68 U/L (30-120); ALT (SGPT) 102 U/L (10-68); CKMB 2.4 U/L (0.0-3.6); CREATINE KINASE 286 UL (21-232); MAGNESIUM - SERUM 1.8 mg/dL (1.8-2.4); PRO BNP 126 pg/mL (0-125); PROTEIN - SERUM 6.8 g/dL (6.4-8.2); TROPONIN-I < 0.017 ng/mL (0.000-0.060)
[2019-10-02] MEDS ORDERED: FUROSEMIDE20 MG PO (14:07)
[2019-10-02 14:37] VITALS: BP 132/80
== END 2019-10-02 14:38 | disposition home or self-care (01) ==
LOC: D.ER 11:13
PROVIDERS: Family Medicine
DX: M54.16 Radiculopathy, lumbar region (principal); R60.0 Localized edema; I10 Essential (primary) hypertension; K21.9 Gastro-esophageal reflux disease without esophagitis